=== PATIENT | female | born 1950 | race Caucasian/White ===

== ENCOUNTER 2024-06-14 18:34 | Inpatient (IN) | payer OTHER ==
[~2024-06-14] VITALS: Ht 170.2 cm; Wt 65.4 kg
--- NOTE | 2024-06-14 18:42 | ECG ---
[facility] Test Date: 2024-06-14 Test Time: 18:37:58 Pat Name: SANDIE ARMENDARIZ Department: er Room: 0283 Gender: F Book Coverer: lala : 1950 Requested By: AMERICA COKER Order Number: [id number] Reading MD: Sj Fitch Measurements Intervals [place] Rate: 81 P: 81 KS: 116 QRS: 71 QRSD: 95 T: 69 QT: 377 QTc: 438 Interpretive Statements Sinus rhythm Borderline short [place] interval RSR' in V1 or V2, right VCD or RVH Electronically Signed On 06-17-2024 17:54:50 PST by Sj Fitch Please click the below link to view image of tracing.
--- NOTE | 2024-06-14 19:05 | ED.PDOC ---
History of Present Illness HPI Comments 73 y/o F, with a history of CHF, COPD w/home O2, HLD, HTN, [place], and PNA, is BIBA for c/o shortness of breath, productive cough, and non-radiating, left-chest wall pain, today. Per EMS report, patient is a resident of [facility] and having staff at facility call, due to endorsement of symptoms and being found with SpO2 of "82% on 4LPM O2 concentrator." On scene, patient was stated to have been found with crackles and rales and a SpO2 of 87% on 5LPM. Upon arrival to ED, patient is stated to be on SpO2 of 97% on 4LPM NC. Patient describes pain as heavy and pressure-like in quality. She denies having any hemoptysis, nausea, vomiting, fever, chills, or other associated symptoms or modifiers at this time. Chief Complaint: Shortness of Breath Time Seen by MD: 18:45 Reviewed Notes: Nurses Notes, Medications, Allergies Allergies: Uncoded Allergies: ANTIBIOTICS (Allergy, Unknown, 06/14/24) PENICILLIN (Allergy, Unknown, 06/14/24) SULFA (Allergy, Unknown, 06/14/24) Information Source: Patient, Emergency Med Personnel Mode of Arrival: EMS Severity: Moderate Timing: Hours Duration: Since onset Prehospital treatment: 12 Lead EKG, Configuration Manager, Oxygen Past Medical History PAST MEDICAL HISTORY: CHF, COPD (w/2-4LPM home O2), High Lipids, HTN, [place] Past Medical History (Other): PNA Surgical History: Denies all surgeries CHANNELER INSOLE History: Denies all CHANNELER INSOLE Hx Family History Family History: Unknown Social History Smoker: Non-Smoker Alcohol: Denies ETOH Use Drugs: Denies Drug Use 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 All Other Systems: Reviewed and Negative (Comprehensive systems review obtained and negative except for what is stated in the HPI.) Physical Exam General Appearance: No Apparent Distress, Normal HEENT: Normal ENT Inspection, Pharynx Normal, TMs Normal Neck: Full Range of Motion, Non-Tender, Normal, Normal Inspection Respiratory: Chest Non-Tender, Crackles (bilateral lung brand), Lungs Clear, No Accessory Muscle Use, No Respiratory Distress, Wheezing (bilateral lung brand), Other (productive cough, on 4LPM NC O2) Cardiovascular: No Edema, No JVD, No Murmur, No Gallop, Normal Peripheral Pulses, Regular Rate/Rhythm Breast Exam: Deferred Gastrointestinal: No Organomegaly, Non Tender, No Pulsatile Mass, Normal Bowel Sounds, Soft Genitalia: Deferred Pelvic: Deferred Rectal: Deferred Extremities: No calf tenderness, Normal capillary refill, Normal inspection, Normal range of motion, Non-tender, No pedal edema Musculoskeletal : Apperance: Normal Neurologic: Alert, rejector II-XII nml as Tested, No Motor Deficits, Normal Affect, Normal Mood, No Sensory Deficits Cerebellar Function: Normal Reflexes: Normal Skin: Dry, Normal Color, Warm Lymphatic: No Adenopathy Was a procedure done? Was a procedure done?: No EKG EKG : Pulse Rate (adult): 81 [place]: Normal Cardiac Rhythm: NSR Block: None Hypertrophy: None ST: Normal Differential Dx Considerations may include: COPD exacerbation, URI, viral syndrome, PNA X-Ray, Labs, Meds, VS Vital Signs Date Time Temp Pulse Resp B/P (MAP) Pulse Ox O2 Delivery O2 Flow Rate FiO2 06/14/24 22:10 20 97 Nasal Cannula* 4 36 06/14/24 21:44 97.6 109 17 158/81 (106) 96 97.6 06/14/24 19:05 81 06/14/24 18:40 98.0 84 20 136/74 (94) 97 06/14/24 18:37 81 Lab Test 06/14/24 20:07 06/14/24 19:54 06/14/24 19:00 Range/Units Influenza Type A Antigen Negative Negative Influenza Type B Antigen Negative Negative SARS-CoV-2 Antigen (Rapid) Negative NEGATIVE Troponin I High Sensitivity 27 27 </=34 ng/L White Blood Count 13.7 H 4.4-10.8 10^3/uL Red Blood Count 3.88 L 4.0-5.20 10^6/uL Hemoglobin 11.6 L 12.2-16.2 g/dL Hematocrit 34.7 L 36.0-46.0 % Mean Corpuscular Volume 89.3 80.0-100.0 fL Mean Corpuscular Hemoglobin 29.8 28.0-32.0 pg Mean Corpuscular Hemoglobin Concent 33.4 32.0-36.0 g/dL Red Cell Distribution Width 16.0 H 11.8-14.3 % Platelet Count 269 140-450 10^3/uL Mean Platelet Volume 9.6 6.9-10.8 fL Neutrophils (%) (Auto) 90.2 H 37.0-80.0 % Lymphocytes (%) (Auto) 6.9 L 10.0-50.0 % Monocytes (%) (Auto) 2.1 0.0-12.0 % Eosinophils (%) (Auto) 0.4 0.0-7.0 % Basophils (%) (Auto) 0.4 0.0-2.0 % Neutrophils # (Auto) 12.4 H 1.6-8.6 10 ^3/uL Lymphocytes # (Auto) 0.9 0.4-5.4 10 ^3/uL Monocytes # (Auto) 0.3 0-1.3 10 ^3/uL Eosinophils # (Auto) 0.1 0-0.8 10 ^3/uL Basophils # (Auto) 0.1 0-0.2 10 ^3/uL Nucleated Red Blood Cells 0.1 % Sodium Level 141 136-145 mmol/L Potassium Level 3.6 3.5-5.1 mmol/L Chloride Level 103 98-107 mmol/L Carbon Dioxide Level 30 20-31 mmol/L Anion Gap 8 5-15 Blood Urea Nitrogen 14 9-23 mg/dL Creatinine 0.69 0.550-1.02 mg/dL Glomerular Filtration Rate Calc 91 >90 mL/min BUN/Creatinine Ratio 20.3 H 10.0-20.0 Serum Glucose 139 H 74-106 mg/dL Lactic Acid Level 1.0 0.4-2.0 mmol/L Calcium Level 10.0 8.7-10.4 mg/dL B-Type Natriuretic Peptide 62.35 0-100 pg/mL Current Medications Medications (Trade) Dose Ordered Sig/Alina Route Start Time Stop Time Status Last Admin Albuterol (Ventolin Medneb) 5 mg ONCE ONCE NEB 06/14/24 21:45 06/14/24 22:07 DC 06/14/24 22:09 Ipratropium [place] (Atrovent Medneb) 0.5 mg ONCE ONCE NEB 06/14/24 21:45 06/14/24 22:07 DC 06/14/24 22:[address] [address] Ph: [phone] DIAGNOSTIC IMAGING Diagnostic Imaging Report : [id number] Signed PATIENT: SANDIE ARMENDARIZ ACCT: [id number] UNIT: [id number] : 1950 LOC: ER ROOM / BED: / AGE / SEX: 73 / F ADM STATUS: REG ER SERVICE 184 ORDERING PHYSICIAN: AMERICA COKER MD PROCEDURE(s): CXRP - CHEST PORTABLE REASON: sob ORDER NUMBER(s): [id number], ACCESSION NUMBER(s): [id number] CHEST RADIOGRAPH Indication: sob Technique: Single frontal view of the chest was obtained COMPARISON: None FINDINGS: Lines and Tubes: None Lungs: Clear Pleura: No effusion. No pneumothorax. Cardiomediastinal contours: Unremarkable IMPRESSION: No acute disease. ATED BY: KENDRICK BARBOUR MD DICTATED DATE/TIME: 06/14/242026 SIGNED BY: KENDRICK BARBOUR MD SIGNED DATE/TIME: 06/14/242026 CC: Time of 1ST Reevaluation: 19:15 Reevaluation 1ST: Unchanged Patient Education/Counseling: Diagnosis, Treatment Family Education/Counseling: No Family Present Additional Information The following tests were ordered, and results were reviewed by me: Troponin, rapid influenza a and B and COVID-19 antigen test, blood cultures, lactic acid, CXR, CBC, BMP, BNP Additional Information was gathered from interviewing the following independent historians: EMS I reviewed and agreed with the following test results read by other providers: CXR I discussed treatment and results with medical personnel and: patient Departure 1 Departure Time of Disposition: 22:46 (Patient presented with acute shortness of breath concerning for acute on chronic COPD Exacerbation, Pneumonia, ACS, CHF, Pneumothorax. Less likely PE, Dissection. Data: 1. I ordered and reviewed the result of at least 3 labs including a CBC, BMP, and Troponin. 2. I independently interpreted the following tests: Chest X-ray shows chronic lung disease .Risk:This patient has a high risk of morbidity due to further diagnostic testing or treatment and may suffer from respiratory or cardiac etiology . Workup reveals a likely COPD Exacerbation and patient should be admitted for further workup. and possible expert consultation.) Impression: Primary Impression: Acute and chronic respiratory failure Additional Impressions: COPD exacerbation Shortness of breath Disposition: ADMITTED INPATIENT Admit to: Med Surg Condition: Serious Critical Care Note Critical Care Time?: Yes Critical care comment: Acute shortness of breath Authorized and Performed by: America Coker MD Total critical care time: Approximately 39 minutes Due to a high probability of clinically significant, life threatening det erioration, the patient required my highest level of preparedness to intervene emergently and I personally spent this critical care time directly and personally managing the patient. This critical care time included obtaining a history; examining the patient; pulse oximetry; ordering and review of studies; arranging urgent treatment with development of a management plan; evaluation of patient's response to treatment; frequent reassessment; and, discussions with other providers. This critical care time was performed to assess and manage the high probability of imminent, life-threatening deterioration that could result in multi-organ failure. It was exclusive of separately billable procedures and treating other patients and teaching time. Please see my other sections and the rest of the note for further information on patient assessment and treatment. Stability Stability form required: No Heart Score Heart Score: Heart Score Response (Comments) Value History Moderate Suspicious 1 EKG Repolarization Disturb 1 Age >65 2 Risk Factors 1 or 2 risk factors 1 Troponin 1-2 x's Normal limit 1 Total 6 I personally scribed for AMERICA COKER MD ([email or web address]) on 06/14/24 at 19:05. Electronically submitted by Bruce Cole ([email or web address]). I personally scribed for AMERICA COKER MD ([email or web address]) on 06/14/24 at 19:12. Electronically submitted by Bruce Cole ([email or web address]). I personally scribed for AMERICA COKER MD ([email or web address]) on 06/14/24 at 20:50. Electronically submitted by Bruce Cole ([email or web address]). AMERICA COKER MD Jun 14, 2024 19:05
[2024-06-14 19:24] LABS: Basophils # (auto) 0.1 10 ^3/uL (0-0.2); Basophils % (auto) 0.4 % (0.0-2.0); Eosinophils # (auto) 0.1 10 ^3/uL (0-0.8); Eosinophils % (auto) 0.4 % (0.0-7.0); Hematocrit 34.7 % (36.0-46.0); Hemoglobin 11.6 g/dL (12.2-16.2); Lymphocytes # (auto) 0.9 10 ^3/uL (0.4-5.4); Lymphocytes % (auto) 6.9 % (10.0-50.0); Mean Corpuscular Hemoglobin 29.8 pg (28.0-32.0); Mean Corpuscular Hgb Conc. 33.4 g/dL (32.0-36.0); Mean Corpuscular Volume 89.3 fL (80.0-100.0); Monocytes # (auto) 0.3 10 ^3/uL (0-1.3); Monocytes % (auto) 2.1 % (0.0-12.0); Neutrophils # (auto) 12.4 10 ^3/uL (1.6-8.6); Neutrophils % (auto) 90.2 % (37.0-80.0); Nucleated Red Blood Cells % 0.1 %; Platelet Count (auto) 269 10^3/uL (140-450); Red Blood Cells 3.88 10^6/uL (4.0-5.20); White Blood Cell 13.7 10^3/uL (4.4-10.8)
[2024-06-14 19:31] LABS: Chloride 103 mmol/L (98-107); Potassium 3.6 mmol/L (3.5-5.1); Sodium 141 mmol/L (136-145)
[2024-06-14 19:32] LABS: Anion Gap 8 (5-15); Carbon Dioxide 30 mmol/L (20-31)
[2024-06-14 19:37] LABS: BUN/Creatinine Ratio 20.3 (10.0-20.0); Blood Urea Nitrogen 14 mg/dL (9-23)
[2024-06-14 19:38] LABS: Glucose 139 mg/dL (74-106)
--- NOTE | 2024-06-14 20:29 | DVH ---
CHEST RADIOGRAPH Indication: sob Technique: Single frontal view of the chest was obtained COMPARISON: None FINDINGS: Lines and Tubes: None Lungs: Clear Pleura: No effusion. No pneumothorax. Cardiomediastinal contours: Unremarkable IMPRESSION: No acute disease.
[2024-06-14 21:22] LABS: COVID19 ANTIGEN SOFIA FIA NEGATIVE (NEGATIVE); Rapid Influenza A Negative (Negative); Rapid Influenza B Negative (Negative)
[2024-06-14] MEDS: IPRATROPIUM BROM 0.5 MG/2.5ML INH SOL NEB ONE (22:09)
[2024-06-14] MEDS: ALBUTEROL SULF 2.5 MG/0.5ML(0.5%) NEB SOLN NEB ONE (22:09)
[2024-06-14] MEDS: IPRATROPIUM BROM 0.5 MG/2.5ML INH SOL ONE (22:09)
[2024-06-14] MEDS: ALBUTEROL SULF 2.5 MG/0.5ML(0.5%) NEB SOLN ONE (22:10)
[2024-06-14] MEDS: methylPREDNISolone SOD SUCC 125 MG/2 ML VL IV ONE (23:45)
[2024-06-14] MEDS ORDERED: NITROGLYCERIN 0.4 MG SL TAB SL PRN (23:45)
[2024-06-14] MEDS ORDERED: MORPHINE SULFATE INJ 2 MG/ml SYRG IV PRN ×2 (23:45)
[2024-06-14] MEDS: AZITHROMYCIN 250 MG TAB PO ONE (23:45)
[2024-06-15] VITALS (17 sets, daily range): BP systolic 158; BP diastolic 51; PULSE 67–109; RESP 14–20; O2SAT 93–100
--- NOTE | 2024-06-15 00:28 | DVHHPRES ---
History of Present Illness Resident Creating Document: MATEO DE LA [place]GA RESIDENT History of Present Illness Juanito Heller the 73-year-old female, poor historian with a PMH of CHF, COPD with home oxygen, HLD, HTN, [place] presented to the ED with the chief complaints of worsening of shortness of breaths and left-sided chest pain. Patient reported she has been on home oxygen 2-4 L as needed but for past 3 weeks for shortness of breath has been worsening and today she developed left-sided chest pain which is pressure-like, radiating to left arm, 7/10 intensity no aggravating or relieving factors and no association symptoms. Patient reported she has currently at [facility] and having staff at facility call, due to endorsement of symptoms and being found with SpO2 of 82% on 4LPM. On my assessment patient denies fever, nausea, vomiting, diarrhea, constipation, diaphoresis, palpitations and other acute associated symptoms. PMH: CHF, COPD on 4 L home O2, HLD, HTN, [place] PSH: Denies Family history: Noncontributory Social history: Lives at SNF. Denies smoking, alcohol and other drug abuse Allergies: Antibiotics, penicillins, sulfa Home medications: Unable to obtain Review of Systems Constitutional: Yes: Weakness Eyes: No: Pain, Vision change, Conjunctivae inflammation, Eyelid inflammation, Other, Redness ENT: No: Ear pain, Ear discharge, Nose pain, Nose discharge, Nose congestion, Mouth pain, Mouth swelling, Throat pain, Throat swelling, Other Respiratory: Cough, Shortness of breath, SOB with excertion Cardiovascular: Chest Pain, Edema Gastrointestinal: No: Nausea, Vomiting, Abdominal Pain, Diarrhea, Constipation, Melena, Hematochezia, Other Genitourinary: No Dysuria, No Frequency, No Incontinence, No Hematuria, No Retention, No Other Musculoskeletal: No: other, neck pain, shoulder pain, arm pain, back pain, hand pain, leg pain, foot pain Skin: No: Rash, Lesions, Jaundice, Bruising, Other Neurological: No: Weakness, Numbness, Incoordination, Change in speech, Confusion, Seizures, Other Allergies: Coded Allergies: Penicillins (Verified Allergy, Unknown, 06/15/24) Sulfa Antibiotics (Verified Allergy, Unknown, 06/15/24) Uncoded Allergies: ANTIBIOTICS (Allergy, Unknown, 06/14/24) PENICILLIN (Allergy, Unknown, 06/14/24) SULFA (Allergy, Unknown, 06/14/24) Medications Current Medications Medications Dose Ordered Sig/Alina Route Start Time Stop Time Status Last Admin Dose Admin Sodium Chloride 10 ml Q8HR IV 06/15/24 06:00 Enoxaparin Sodium 40 mg DAILY SC 06/15/24 10:00 Acetaminophen 650 mg Q6HP PRN PO 06/14/24 23:45 Morphine Sulfate 2 mg Q4HPRN PRN IV 06/14/24 23:45 Nitroglycerin 0.4 mg Q5MINP PRN SL 06/14/24 23:45 Morphine Sulfate 2 mg Q30M PRN IV 06/14/24 23:45 Levalbuterol HCl 0.625 mg Q6HR NEB 06/15/24 00:00 Ipratropium [place] 0.5 mg Q6HPRN NEB 06/15/24 00:00 Methylprednisolone Sodium Succinate 40 mg DAILY IV 06/15/24 10:00 Exam Vital Signs Vital Signs Date Time Temp Pulse Resp B/P (MAP) Pulse Ox O2 Delivery O2 Flow Rate FiO2 06/15/24 00:14 97.9 94 18 153/83 (106) 97 97.9 06/15/24 00:07 4.0 36 06/14/24 22:10 Nasal Cannula* Exam General Appearance: Alert, Oriented X3, Cooperative, moderate distress HEENT: Atraumatic, Mucous membranes moist/pink Respiratory: Diminished breath sounds bilaterally Cardiovascular: Regular rate, Normal S1, Normal S2 Abdominal: Active bowel sounds, Soft, no distention, no tenderness Extremities: 1+ BLE edema, Normal pulses, No tenderness Skin: No Significant rash, except age related changes Neuro: Normal speech, sensorimotor deficits none Psych/Mental Status: Mental status NL, Mood NL Nurse was there as sharperone during examination Labs/Xrays Labs Test 06/14/24 20:07 06/14/24 19:54 06/14/24 19:00 Range/Units Influenza Type A Antigen Negative Negative Influenza Type B Antigen Negative Negative SARS-CoV-2 Antigen (Rapid) Negative NEGATIVE Troponin I High Sensitivity 27 </=34 ng/L White Blood Count 13.7 H 4.4-10.8 10^3/uL Red Blood Count 3.88 L 4.0-5.20 10^6/uL Hemoglobin 11.6 L 12.2-16.2 g/dL Hematocrit 34.7 L 36.0-46.0 % Mean Corpuscular Volume 89.3 80.0-100.0 fL Mean Corpuscular Hemoglobin 29.8 28.0-32.0 pg Mean Corpuscular Hemoglobin Concent 33.4 32.0-36.0 g/dL Red Cell Distribution Width 16.0 H 11.8-14.3 % Platelet Count 269 140-450 10^3/uL Mean Platelet Volume 9.6 6.9-10.8 fL Neutrophils (%) (Auto) 90.2 H 37.0-80.0 % Lymphocytes (%) (Auto) 6.9 L 10.0-50.0 % Monocytes (%) (Auto) 2.1 0.0-12.0 % Eosinophils (%) (Auto) 0.4 0.0-7.0 % Basophils (%) (Auto) 0.4 0.0-2.0 % Neutrophils # (Auto) 12.4 H 1.6-8.6 10 ^3/uL Lymphocytes # (Auto) 0.9 0.4-5.4 10 ^3/uL Monocytes # (Auto) 0.3 0-1.3 10 ^3/uL Eosinophils # (Auto) 0.1 0-0.8 10 ^3/uL Basophils # (Auto) 0.1 0-0.2 10 ^3/uL Nucleated Red Blood Cells 0.1 % Sodium Level 141 136-145 mmol/L Potassium Level 3.6 3.5-5.1 mmol/L Chloride Level 103 98-107 mmol/L Carbon Dioxide Level 30 20-31 mmol/L Anion Gap 8 5-15 Blood Urea Nitrogen 14 9-23 mg/dL Creatinine 0.69 0.550-1.02 mg/dL Glomerular Filtration Rate Calc 91 >90 mL/min BUN/Creatinine Ratio 20.3 H 10.0-20.0 Serum Glucose 139 H 74-106 mg/dL Lactic Acid Level 1.0 0.4-2.0 mmol/L Calcium Level 10.0 8.7-10.4 mg/dL B-Type Natriuretic Peptide 62.35 0-100 pg/mL Assessment/Plan Assessment/Plan # acute on chronic hypoxic respiratory failure due to below # ? COPD exacerbation # rule out sepsis -ad[facility] -currently on 5L NC O2 -receiving azithromycin along with breathing treatments -methylprednisolone 40 mg daily -closely monitor for respiratory distress -ordered larios cultures # rule out ACS -troponins negative -ordered chest pain protocol # CHF likely not in exacerbation -echocardiogram -BNP not elevated # uncontrolled HTN -continuously monitor -hydralazine 10 mg for now Protonix Lovenox Cardiac diet Goals of care discussed with the patient for more than 27 minutes: Full code status Case discussed with Dr. Costello, patient and RN Plan discussed with: Patient My Orders Orders - MATEO DE [place] RESIDENT Procedure Category Date Status Time Admit ADMIT 06/14/24 Transmitted 23:36 Allergies AHSAN 06/14/24 In Process 23:36 Code Status CODE 06/14/24 Transmitted 23:36 Sodium Chloride Lock PHA 06/15/24 In Process (Saline Lock Ns) 06:00 Oxygen Per Hour RT 06/14/24 Transmitted 23:36 Enoxaparin Sodium PHA 06/15/24 In Process (Lovenox) 10:00 Complete Blood Count LAB 06/15/24 Logged 04:00 Cardiac DIET 06/15/24 Transmitted Diet-2gna,Lofat,Lochol Breakfast Echo 2d Mode Cardiac US 06/14/24 Logged DOP 23:36 Condition: Stable AHSAN 06/14/24 In Process 23:36 Acetaminophen Tablet PHA 06/14/24 In Process (Tylenol Tablet) 23:45 Morphine Sulfate PHA 06/14/24 In Process Injection 23:45 Nitroglycerin PHA 06/14/24 In Process Sublingual (Ntrostat 23:45 Morphine Sulfate PHA 06/14/24 In Process Injection 23:45 Oxygen By Nasal RT 06/14/24 Transmitted Cannula 23:36 Stat Ekg For Chest AHSAN 06/14/24 In Process Pain 23:36 Notify Of Changes AHSAN 06/14/24 In Process From Base 23:36 Hepatic Panel LAB 06/14/24 Logged 23:36 Ammonia LAB 06/14/24 Logged 23:36 D-Dimer LAB 06/14/24 Logged 23:36 Hemoglobin A1c LAB 06/14/24 Logged 23:36 Lactic Acid W/ Reflex LAB 06/14/24 Logged Order 23:36 Magnesium LAB 06/14/24 Logged 23:36 Thyroid Stimulating LAB 06/14/24 Logged Hormone 23:36 Urinalysis LAB 06/14/24 Logged 23:36 PTPTT LAB 06/14/24 Logged 23:36 Levalbuterol Hcl PHA 06/15/24 In Process (Xopenex Medneb) 00:00 Ipratropium Medneb PHA 06/15/24 In Process (Atrovent Medneb) 00:00 Methylprednisolone PHA 06/15/24 In Process Sod Succ (Solu Medrol 10:00 Comprehensive LAB 06/15/24 Logged Metabolic Panel 04:00 Urine Bacterial OTILIA 06/15/24 Logged Culture 00:22 Respiratory Culture OTILIA 06/15/24 Logged W/ Gs 00:22 Blood Culture OTILIA 06/15/24 Logged 00:22 Azithromycin 500mg/ PHA 06/15/24 Logged 250ml (Zithromax 50 10:00 Hydralazine Injection PHA 06/15/24 Logged (Apresoline Inject 00:30 Hydralazine Injection PHA 06/15/24 Logged (Apresoline Inject 00:30 Pantoprazole PHA 06/15/24 Transmitted (Protonix) 10:00 Date of Service: Jun 14, 2024 Billing Provider: JENNI COSTELLO MD Common Visit Codes: 69964-[id number] INP/OBS CARE (HIGH) Secondary Visit Codes: [id number]-[id number] CARE PLAN 30 MINUTES MATEO DE [place] RESIDENT Jun 15, 2024 00:28 JENNI COSTELLO MD Jun 15, 2024 17:53
[2024-06-15] MEDS ORDERED: hydrALAZINE HCL 20 MG/ML VL IV PRN (00:30)
[2024-06-15] MEDS: hydrALAZINE HCL 20 MG/ML VL IV ONE (00:30)
[2024-06-15] MEDS: LEVALBUTEROL HCL 1.25 MG/3 ML NEB NEB SCH ×2 (00:56→17:43)
[2024-06-15] MEDS: IPRATROPIUM BROM 0.5 MG/2.5ML INH SOL NEB SCH (00:56)
[2024-06-15 01:48] LABS: Lactic Acid w/Reflex 2.9 mmol/L (0.4-2.0)
[2024-06-15 04:15] LABS: Urine Bacteria MOD /hpf (None Seen); Urine Blood Negative /uL (Negative); Urine Clarity Clear (Clear); Urine Color Light-Yellow (Yellow); Urine Hyaline Cast MOD /lpf (0 - 2); Urine Protein, UAD TRACE (Negative); Urine Specific Gravity 1.015 (1.001-1.035); Urine Squamous Epithelial Cell FEW /hpf (<5); Urine Urobilinogen Normal (Negative); Urine WBC 2 /HPF (0-5); Urine pH 6.5 (5.0-9.0)
[2024-06-15] MEDS: SODIUM CHLOR 0.9% PF (SALINE LOCK) 10ML VIAL/SYR IV SCH (06:04)
[2024-06-15 06:38] LABS: Basophils # (auto) 0 10 ^3/uL (0-0.2); Basophils % (auto) 0.4 % (0.0-2.0); Eosinophils # (auto) 0 10 ^3/uL (0-0.8); Hematocrit 32.7 % (36.0-46.0); Hemoglobin 10.9 g/dL (12.2-16.2); Lymphocytes # (auto) 1.1 10 ^3/uL (0.4-5.4); Lymphocytes % (auto) 8.5 % (10.0-50.0); Mean Corpuscular Hemoglobin 29.8 pg (28.0-32.0); Mean Corpuscular Hgb Conc. 33.2 g/dL (32.0-36.0); Mean Corpuscular Volume 89.5 fL (80.0-100.0); Monocytes # (auto) 0.2 10 ^3/uL (0-1.3); Monocytes % (auto) 1.4 % (0.0-12.0); Neutrophils # (auto) 11.3 10 ^3/uL (1.6-8.6); Neutrophils % (auto) 89.7 % (37.0-80.0); Platelet Count (auto) 235 10^3/uL (140-450); Red Blood Cells 3.65 10^6/uL (4.0-5.20); Red Cell Distribution Width 16.2 % (11.8-14.3); White Blood Cell 12.6 10^3/uL (4.4-10.8)
[2024-06-15 06:51] LABS: INR 1.05 (0.9-1.15); Partial Thromboplastin Time 25.3 SEC (24.5-34.5); Prothrombin Time 11.1 sec (9.3-11.8)
[2024-06-15 06:57] LABS: Albumin 4.6 g/dL (3.2-4.8); Alkaline Phosphatase 68 U/L (46-116); Anion Gap 9 (5-15); BUN/Creatinine Ratio 19.7 (10.0-20.0); Bilirubin, Direct 0.2 mg/dL (<0.3); Bilirubin, Total 0.5 mg/dL (0.2-1.0); Blood Urea Nitrogen 13 mg/dL (9-23); Calcium 9.9 mg/dL (8.7-10.4); Carbon Dioxide 27 mmol/L (20-31); Chloride 104 mmol/L (98-107); Magnesium 2.2 mg/dL (1.6-2.6); Sodium 140 mmol/L (136-145); Total Protein 6.3 g/dL (5.7-8.2)
[2024-06-15 06:59] LABS: Alanine Aminotransferase 71 U/L (7-40); Aspartate Aminotransferase 83 U/L (13-40); Glucose 114 mg/dL (74-106); Potassium 3.4 mmol/L (3.5-5.1)
[2024-06-15] MEDS: SODIUM CHLORIDE 0.9% 500 ML IV ONE (07:43)
[2024-06-15 08:25] LABS: Benzodiazephine Screen, Urine Neg (NEGATIVE); Opiate Scree,Urine Neg (NEGATIVE)
[2024-06-15 08:26] LABS: Amphetamine Screen, Urine Neg (NEGATIVE); Barbiturate Scree,Urine Neg (NEGATIVE); Cannabinoid Screen, Urine Neg (NEGATIVE); Cocaine Screen, Urine Neg (NEGATIVE); Phencyclidine Screen, Urine Neg (NEGATIVE)
[2024-06-15] MEDS: SODIUM CHLORIDE 0.9% 1,000 ML IV SCH (08:44)
[2024-06-15] MEDS ORDERED: cefTRIAXone 1GM/50ML D5W 50 ML IV SCH (09:00)
--- NOTE | 2024-06-15 09:10 | DVHPNRES ---
Progress Note Date Seen: Jun 15, 2024 Resident Creating Document: WILBER CANELA RESIDENT Medical Necessity Reason Pt with a Central, PICC or Fol: No Subjective Review of Systems Patient is a 73-year-old female with past medical history of COPD, CHF, MS, h ypertension who came in due to shortness of breath and decreased SpO2. According to the patient, she was discharged from [facility] on 06/10/2024 after being treated for pneumonia and was sent to [facility] for physical therapy. Per patient, she has been having dyspnea and shortness of breath since then, patient is on home O2 2-4 L, at [facility] she was noted to have SpO2 of 82% on 4 L with SpO2 averaging at 86% on 5 L which is what prompted this visit to the hospital. Patient notes a left-sided chest pain that has been ongoing for the last few months, anterior chest tenderness to palpation is also noted. Patient states she is a little forgetful at baseline. Chest x-ray was unremarkable in the ER, chest x-ray performed at [facility] on 06/01/2024 showed peripheral left lower lobe airspace opacity, concerning for pneumonia. Past surgical history: Hysterectomy Home medications: Albuterol, atorvastatin, budesonide, carvedilol, furosemide, [place] 5, lansoprazole, latanoprost, losartan, pregabalin, sertraline, trazodone, Trelegy Past Hospitalization: 06/01/2024 for pneumonia and sepsis due to pneumonia Social & Personal history: Patient came from [facility] this time, prior to that was living at home with her . Quit smoking 8 years ago prior to that was smoking 1.5 pack per day for 50 years. Drinks 1-2 alcoholic drinks daily, remote history of heavy alcohol use and rehab attendance. Denies using any drugs. Allergies: Patient states allergy to sulfa drugs which causes nightmares. Patient states she is not allergic to penicillin and her is allergic to penicillin. Patient seen and examined at bedside. Patient is alert and oriented to time, place person and responding to all questions. General: Fatigue, chills Eyes: No Pain, No Vision change, No Conjunctivae inflammation, No Eyelid inflammation, No Other, No Redness ENT: No Ear pain, No Ear discharge, No Nose pain, No Nose discharge, No Nose congestion, No Mouth pain, No Mouth swelling, No Throat pain, No Throat swelling, No Other Cardiovascular: No Chest Pain, Palpitations, No Orthopnea, No Paroxysmal No Dyspnea, No Edema, No Lt Headedness, No Other Respiratory: Cough, No Dry Shortness of breath, No SOB with exertion, No Wheezing, No Hemoptysis, No Pleuritic Pain, No Sputum, No Other Gastrointestinal: No Nausea, No Vomiting, No Abdominal Pain, No Diarrhea, No Constipation, No Melena, No Hematochezia, No Other Genitourinary: No Dysuria, Frequency, No Incontinence, No Hematuria, No Retention, No Other Musculoskeletal: No other, No neck pain, No shoulder pain, No arm pain, No back pain, No hand pain, No leg pain, No foot pain Skin: No Rash, No Lesions, No Jaundice, No Bruising, No Other Objective vital signs Vital Sign Date Time Temp Pulse Resp B/P (MAP) Pulse Ox O2 Delivery O2 Flow Rate FiO2 06/15/24 07:45 94 14 94 Nasal Cannula* 3 32 06/15/24 07:45 97.8 128/63 (84) 97.8 medications Current Medications Medications Dose Ordered Sig/Alina Route Start Time Stop Time Status Last Admin Dose Admin Sodium Chloride 10 ml Q8HR IV 06/15/24 06:00 06/15/24 06:04 10 ML Enoxaparin Sodium 40 mg DAILY SC 06/15/24 10:00 Acetaminophen 650 mg Q6HP PRN PO 06/14/24 23:45 Levalbuterol HCl 0.625 mg Q6HR NEB 06/15/24 00:00 06/15/24 07:13 0.625 MG Ipratropium [place] 0.5 mg Q6HPRN NEB 06/15/24 00:00 06/15/24 07:13 0.5 MG Methylprednisolone Sodium Succinate 40 mg DAILY IV 06/15/24 10:00 Azithromycin 250 ml @ 125 mls/hr DAILY IV 06/15/24 10:00 UNV Pantoprazole Sodium 40 mg DAILY IV 06/15/24 10:00 Azithromycin 250 ml @ 125 mls/hr Q24H IV 06/15/24 23:00 Sodium Chloride 1,000 ml @ 75 mls/hr [id number] IV 06/15/24 06:45 06/15/24 08:44 75 MLS/HR Ceftriaxone Sodium 50 ml @ 100 mls/hr DAILY@09 IV 06/15/24 09:00 UNV Examination General Appearance: Cooperative. Well developed. Well nourished. NAD Head Exam: Normal inspection. White patches on tongue noted Neck Exam: Normal inspection. Non-tender. Normal alignment Pulmonary/Respiratory: Chest tender. Decreased bilateral breath sounds, no crackles, no wheezing. Cardiovascular/Chest: Regular rate and rhythm. No murmurs. No JVD. Peripheral Pulses: 2+ Radial (R). 2+ Radial (L). 2+ Pedal (R). 2+ Pedal (L) Abdominal Exam: Normal bowel sounds. Soft. normal abdomen, no visible veins, Nontender. No hepatospenomegaly. No masses Ankle Exam: Negative ankle edema Lower extremities: Negative lower extremity edema Neuro/Mental Status: A&O x4. Coherent. Thoughts/Psych: Normal thought pattern. Appropriate mood and affect. Good judgement and insight Skin Exam: Normal inspection. Normal color. Warm. Dry laboratory and microbiology Laboratory Tests 06/15/24 05:41 Test 06/15/24 05:41 Range/Units Serum Glucose 114 H 74-106 mg/dL Labs and/or images reviewed: Labs reviewed by me, Image(s) reviewed by me Problem List/Assessment/Plan Problem List/Assessment/Plan Community-acquired pneumonia: Gram-positive versus Gram-negative Sepsis due to pneumonia Probable acute complicated UTI COPD exacerbation - CXR today: No acute disease - CXR from [facility] on 06/01/2024 shows peripheral left lower lobe airspace opacity, concerning for pneumonia - IV azithromycin, IV cefepime - IV NS 1500 mL bolus, IV NS at 75 cc/hour - ipratropium and levalbuterol med nebs - IV methylprednisolone 62.5 mg once followed by IV methylprednisolone 40 mg daily - Mucomyst Ruled out ACS - serial troponins 27, 27 - EKG does not show any ST elevations or T-wave changes, however, borderline short [place] interval noted Congestive heart failure, currently stable Coronary artery disease Hypertension - resumed home medication atorvastatin 80 mg - resume home medication losartan 25 mg - home medication carvedilol 3.125 as blood pressure on the softer side, we will continue to monitor Oral thrush - nystatin swish and swallow PUD prophylaxis: protonix 40mg DVT prophylaxis: Levonox 40mg Goals of care: Full code, discussed for >16 minutes on 06/15/2024 Plan discussed with patient Plan discussed with Dr. Ba Plan discussed with: Patient, Other (RN) Date of Service: Jun 15, 2024 Billing Provider: MILI BA MD Common Visit Codes: [id number] INP/OBS CARE(HIGH) WILBER CANELA RESIDENT Jun 15, 2024 09:10 MILI BA MD Jun 20, 2024 15:44
[2024-06-15] MEDS: ENOXAPARIN SOD 40 MG/0.4 ML SYRINGE SC SCH (09:53)
[2024-06-15] MEDS: PANTOPRAZOLE 40 MG/10 ML VIAL INJ IV SCH (09:54)
[2024-06-15] MEDS: methylPREDNISolone SOD SUCC 40 MG/ML VL IV SCH (09:54)
[2024-06-15] MEDS ORDERED: AZITHROMYCIN 500MG/ 250ML 250 ML IV SCH (10:00)
[2024-06-15] MEDS ORDERED: CEFEPIME 1GM/ 50ML 50 ML IV ONE (10:30)
[2024-06-15] MEDS: SODIUM CHLORIDE 0.9% 1,000 ML IV ONE (10:43)
[2024-06-15] MEDS: CEFEPIME 1GM/ 50ML 50 ML IV ONE (10:46)
[2024-06-15] MEDS: ACETYLCYSTEINE 20%(200MG/ML) SOL 4ML NEB ONE (11:38)
[2024-06-15] MEDS: NYSTATIN (MOUTH-THROAT) 500,000 UNITS/5 ML SUSP MT SCH (11:54)
--- NOTE | 2024-06-15 13:06 | DVHSR ---
APPROVED REPORT EXAM: Two-dimensional and M-mode echocardiogram with Doppler and color Doppler. Blood Pressure: 146/60 mmHg INDICATION Chest Pain SOB RISK FACTORS Height: 5' 5", Weight: 138 DIMENSIONS LVDd4.2 (3.8-5.7cm)LA (2D)3.7 (1.9-4.0cm)Aortic Root3.1 (2.0-3.7cm) LVDs3.2 (2.5-4.0cm)LA (MM) (1.9-4.0cm)Aortic Cusp Exc1.4 (1.5-2.0cm) EF (%) 50.0 (55-70%)Rt. Atrium3.7 (1.9-4.0cm)Asc. Aorta cm IVSd0.8 (0.7-1.1cm)RV (D) (1.8-2.4cm) PWd0.8 (0.7-1.1cm) Mitral Valve MitralMitral Stenosis E wave1.30m/sMV Mean GR.mmHg A wave1.10m/sMV Peak GR.mmHg E/A ratio1.22D MVAcm2 Aortic Valve Aortic ValveAortic Stenosis V11.00m/Luis A Mean GR.4mmHg V21.60m/Luis A Peak GR.10mmHg LVOT Diameter2.2 (1.8-2.4cm)Doppler AVA2.37cm2 Conclusion lvef 65 % byvisual estimate normal rv function left atrium enlarged no severe valve abnormalities noted
[2024-06-15] MEDS: ACETYLCYSTEINE 20%(200MG/ML) SOL 4ML NEB SCH (14:00)
[2024-06-15] MEDS: HYDROcodone-ACET 5/325MG TAB PO ONE (14:15)
[2024-06-15] MEDS: IPRATROPIUM BROM 0.5 MG/2.5ML INH SOL NEB PRN (17:44)
[2024-06-15] MEDS: ATORVASTATIN 20 MG TAB PO SCH (23:29)
[2024-06-15] MEDS: AZITHROMYCIN 500MG/ 250ML 250 ML IV SCH (23:30)
[2024-06-16] VITALS (16 sets, daily range): BP systolic 118–135; BP diastolic 52–62; PULSE 72–95; RESP 16–20; TEMP 97.4–98.6; O2SAT 93–100
[2024-06-16] MEDS ORDERED: FLUT1AER17 INH (00:43)
[2024-06-16] MEDS ORDERED: TRAZ1TAB12 PO (00:43)
[2024-06-16] MEDS ORDERED: ALBU108A5 INH (00:43)
[2024-06-16] MEDS ORDERED: ASPI-325 PO (00:43)
[2024-06-16] MEDS ORDERED: PREG75CA90 PO (00:43)
[2024-06-16] MEDS ORDERED: CARV3.1240 PO (00:43)
[2024-06-16] MEDS ORDERED: IPRA0.00 NEB (00:43)
[2024-06-16] MEDS ORDERED: LATA0.008 EACHEYE (00:43)
[2024-06-16] MEDS ORDERED: VITA400T4 PO (00:43)
[2024-06-16] MEDS ORDERED: ATOR-47 PO (00:43)
[2024-06-16] MEDS ORDERED: LANS30CA58 PO (00:43)
[2024-06-16] MEDS ORDERED: LACT1CAP14 PO (00:43)
[2024-06-16] MEDS ORDERED: LOS25T PO (00:43)
[2024-06-16] MEDS ORDERED: HYDR1TAB97 PO (00:43)
[2024-06-16] MEDS ORDERED: ACET325T82 PO (00:43)
[2024-06-16] MEDS ORDERED: CRAN450T PO (00:43)
[2024-06-16] MEDS ORDERED: SERT-160 PO (00:43)
[2024-06-16] MEDS ORDERED: ASCO500C49 PO (00:43)
[2024-06-16] MEDS ORDERED: FURO20TA4 PO (00:43)
[2024-06-16] MEDS ORDERED: PRED10TA (00:43)
[2024-06-16] MEDS ORDERED: ZINC220T6 PO (00:43)
[2024-06-16] MEDS: HYDROcodone-ACET 5/325MG TAB PO ONE (02:13)
[2024-06-16] MEDS: TEMAZEPAM 15 MG CAP PO ONE (02:13)
[2024-06-16] MEDS: CEFEPIME 1GM/ 50ML 50 ML IV SCH (02:14)
[2024-06-16 08:56] LABS: Basophils # (auto) 0.1 10 ^3/uL (0-0.2); Basophils % (auto) 0.4 % (0.0-2.0); Eosinophils # (auto) 0.1 10 ^3/uL (0-0.8); Eosinophils % (auto) 0.9 % (0.0-7.0); Hematocrit 31.3 % (36.0-46.0); Hemoglobin 10.1 g/dL (12.2-16.2); Lymphocytes # (auto) 3.1 10 ^3/uL (0.4-5.4); Lymphocytes % (auto) 21.9 % (10.0-50.0); Mean Corpuscular Hgb Conc. 32.1 g/dL (32.0-36.0); Mean Corpuscular Volume 90.3 fL (80.0-100.0); Monocytes # (auto) 1.4 10 ^3/uL (0-1.3); Monocytes % (auto) 9.4 % (0.0-12.0); Neutrophils # (auto) 9.6 10 ^3/uL (1.6-8.6); Neutrophils % (auto) 67.4 % (37.0-80.0); Nucleated Red Blood Cells % 0.1 %; Platelet Count (auto) 223 10^3/uL (140-450); Red Blood Cells 3.46 10^6/uL (4.0-5.20); Red Cell Distribution Width 16.3 % (11.8-14.3); White Blood Cell 14.3 10^3/uL (4.4-10.8)
[2024-06-16] MEDS: LOSARTAN POTASSIUM 25 MG TAB PO SCH (09:10)
[2024-06-16 09:21] LABS: Anion Gap 7 (5-15); Carbon Dioxide 26 mmol/L (20-31); Sodium 144 mmol/L (136-145)
[2024-06-16 09:22] LABS: Calcium 9.4 mg/dL (8.7-10.4); Chloride 111 mmol/L (98-107); Potassium 3.3 mmol/L (3.5-5.1)
[2024-06-16 09:27] LABS: BUN/Creatinine Ratio 12.5 (10.0-20.0); Glucose 102 mg/dL (74-106)
[2024-06-16 09:28] LABS: Blood Urea Nitrogen 8 mg/dL (9-23)
[2024-06-16] MEDS: HYDROcodone-ACET 5/325MG TAB PO PRN (13:09)
--- NOTE | 2024-06-16 17:26 | DVHPNRES ---
Progress Note Date Seen: Jun 16, 2024 Resident Creating Document: WILBER CANELA RESIDENT Medical Necessity Reason Pt with a Central, PICC or Fol: No Subjective Review of Systems Patient is a 73-year-old female with past medical history of COPD, CHF, [place], h ypertension who came in due to shortness of breath and decreased SpO2. According to the patient, she was discharged from [facility] on 06/10/2024 after being treated for pneumonia and was sent to [facility] for physical therapy. Per patient, she has been having dyspnea and shortness of breath since then, patient is on home O2 2-4 L, at [facility] she was noted to have SpO2 of 82% on 4 L with SpO2 averaging at 86% on 5 L which is what prompted this visit to the hospital. Patient notes a left-sided chest pain that has been ongoing for the last few months, anterior chest tenderness to palpation is also noted. Patient states she is a little forgetful at baseline. Chest x-ray was unremarkable in the ER, chest x-ray performed at [facility] on 06/01/2024 showed peripheral left lower lobe airspace opacity, concerning for pneumonia. Past surgical history: Hysterectomy Home medications: Albuterol, atorvastatin, budesonide, carvedilol, furosemide, [place] 5, lansoprazole, latanoprost, losartan, pregabalin, sertraline, trazodone, Trelegy Past Hospitalization: 06/01/2024 for pneumonia and sepsis due to pneumonia Social & Personal history: Patient came from [facility] this time, prior to that was living at home with her . Quit smoking 8 years ago prior to that was smoking 1.5 pack per day for 50 years. Drinks 1-2 alcoholic drinks daily, remote history of heavy alcohol use and rehab attendance. Denies using any drugs. Allergies: Patient states allergy to sulfa drugs which causes nightmares. Patient states she is not allergic to penicillin and her is allergic to penicillin. Patient seen and examined at bedside. Patient is alert and oriented to time, place person and responding to all questions. Patient notes improvement in breathing and is expectorating some sputum. Improved breath sounds from previous exam done on 06/15/2024. Objective vital signs Vital Sign Date Time Temp Pulse Resp B/P (MAP) Pulse Ox O2 Delivery O2 Flow Rate FiO2 06/16/24 16:42 98.3 85 16 134/59 (84) 95 98.3 06/16/24 09:39 Nasal Cannula* 3 32 Total Intake and Output 06/15/24 06/15/24 06/16/24 15:00 23:00 07:00 Intake Total 1550 ml 375 ml Balance 1550 ml 375 ml medications Current Medications Medications Dose Ordered Sig/Alina Route Start Time Stop Time Status Last Admin Dose Admin Sodium Chloride 10 ml Q8HR IV 06/15/24 06:00 06/16/24 14:10 10 ML Enoxaparin Sodium 40 mg DAILY SC 06/15/24 10:00 Acetaminophen 650 mg Q6HP PRN PO 06/14/24 23:45 Methylprednisolone Sodium Succinate 40 mg DAILY IV 06/15/24 10:00 06/16/24 09:09 40 MG Azithromycin 250 ml @ 125 mls/hr DAILY IV 06/15/24 10:00 UNV Pantoprazole Sodium 40 mg DAILY IV 06/15/24 10:00 06/16/24 09:09 40 MG Azithromycin 250 ml @ 125 mls/hr Q24H IV 06/15/24 23:00 06/15/24 23:30 125 MLS/HR Sodium Chloride 1,000 ml @ 75 mls/hr [id number] IV 06/15/24 06:45 06/15/24 22:30 75 MLS/HR Cefepime HCl 50 ml @ 12.5 mls/hr Q12H IV 06/15/24 22:00 06/16/24 09:09 12.5 MLS/HR Nystatin 5 ml QID MT 06/15/24 12:00 06/16/24 14:18 5 ML Acetylcysteine 200 mg Q8HR NEB 06/15/24 14:00 06/16/24 12:02 200 MG Levalbuterol HCl 0.625 mg Q6HR NEB 06/15/24 14:00 06/16/24 12:02 0.625 MG Atorvastatin Calcium 80 mg HS PO 06/15/24 22:00 06/15/24 23:29 80 MG Losartan Potassium 25 mg DAILY PO 06/16/24 10:00 06/16/24 09:10 25 MG Ipratropium [place] 0.5 mg Q4HPRN PRN NEB 06/15/24 14:45 06/15/24 17:44 0.5 MG Acetaminophen/ Hydrocodone Bitart 1 tab Q6HPRN PRN PO 06/16/24 13:00 06/16/24 13:09 1 TAB Examination General Appearance: Cooperative. Well developed. Well nourished. NAD Head Exam: Normal inspection. White patches on tongue noted Neck Exam: Normal inspection. Non-tender. Normal alignment Pulmonary/Respiratory: Chest tender. Decreased bilateral breath sounds, but improved from previous exam. no crackles, no wheezing. Cardiovascular/Chest: Regular rate and rhythm. No murmurs. No JVD. Peripheral Pulses: 2+ Radial (R). 2+ Radial (L). 2+ Pedal (R). 2+ Pedal (L) Abdominal Exam: Normal bowel sounds. Soft. normal abdomen, no visible veins, Nontender. No hepatospenomegaly. No masses Ankle Exam: Negative ankle edema Lower extremities: Negative lower extremity edema Neuro/Mental Status: A&O x4. Coherent. Thoughts/Psych: Normal thought pattern. Appropriate mood and affect. Good judgement and insight Skin Exam: Normal inspection. Normal color. Warm. Dry laboratory and microbiology Laboratory Tests 06/16/24 08:29 Test 06/16/24 08:29 Range/Units Serum Glucose 102 74-106 mg/dL Microbiology Date/Time Source Procedure Growth Status 06/15/24 11:00 Nose MRSA Screen - Final Complete 06/15/24 07:45 Sputum Gram Stain - Final Resulted 06/15/24 07:45 Sputum Respiratory Culture - Preliminary Resulted 06/15/24 02:37 Voided Urine Urine Culture - Preliminary Resulted 06/15/24 01:00 Blood Blood Culture - Preliminary NO GROWTH AFTER 24 HOURS OF INCUBATION. Resulted Labs and/or images reviewed: Labs reviewed by me, Image(s) reviewed by me Problem List/Assessment/Plan Problem List/Assessment/Plan Community-acquired pneumonia: Gram-positive versus Gram-negative Sepsis due to pneumonia Probable acute complicated UTI COPD exacerbation - CXR today: No acute disease - CXR from [facility] on 06/01/2024 shows peripheral left lower lobe airspace opacity, concerning for pneumonia - IV azithromycin, IV cefepime - IV NS 1500 mL bolus, IV NS at 75 cc/hour - ipratropium and levalbuterol med nebs - IV methylprednisolone 62.5 mg once followed by IV methylprednisolone 40 mg daily - Mucomyst - PT evaluation requested Ruled out ACS - serial troponins 27, 27 - EKG does not show any ST elevations or T-wave changes, however, borderline short [place] interval noted Congestive heart failure, currently stable Coronary artery disease Hypertension - resumed home medication atorvastatin 80 mg - resume home medication losartan 25 mg - home medication carvedilol 3.125 as blood pressure on the softer side, we will continue to monitor Oral thrush - nystatin swish and swallow Chronic pain - [place] 5 q.6 hours as needed for qteltqow-sn-pjlnsx pain PUD prophylaxis: protonix 40mg DVT prophylaxis: Levonox 40mg Goals of care: Full code, discussed for >16 minutes on 06/15/2024 Plan discussed with patient Plan discussed with Dr. Ba Plan discussed with: Patient, Other (RN) My Orders My Orders Orders - WILBER CANELA Procedure Category Date Status Time Cardiac DIET 06/16/24 Transmitted Diet-2gna,Lofat,Lochol Lunch Pt Request For Service PT 06/16/24 Logged 12:46 Hydrocodone-Acet PHA 06/16/24 In Process 5/325mg Tab ([place] 13:00 Date of Service: Jun 16, 2024 Billing Provider: MILI BA MD Common Visit Codes: [id number] INP/OBS CARE(HIGH) WILBER CANELA Jun 16, 2024 17:26 MILI BA MD Jun 20, 2024 15:45
[2024-06-16] MEDS: MELATONIN 5 MG TAB PO SCH (21:41)
[2024-06-16] MEDS ORDERED: MELATONIN 5 MG TAB PO ONE (22:00)
[2024-06-17] VITALS (17 sets, daily range): BP systolic 116–153; BP diastolic 63–75; PULSE 74–97; RESP 15–19; TEMP 97.4–98.7; O2SAT 96–100
[2024-06-17] MEDS: TEMAZEPAM 15 MG CAP PO ONE (02:36)
[2024-06-17 05:56] LABS: Basophils # (auto) 0 10 ^3/uL (0-0.2); Basophils % (auto) 0.2 % (0.0-2.0); Eosinophils # (auto) 0.1 10 ^3/uL (0-0.8); Eosinophils % (auto) 0.6 % (0.0-7.0); Hematocrit 27.9 % (36.0-46.0); Hemoglobin 9.4 g/dL (12.2-16.2); Lymphocytes # (auto) 2.3 10 ^3/uL (0.4-5.4); Lymphocytes % (auto) 22.6 % (10.0-50.0); Mean Corpuscular Hemoglobin 29.9 pg (28.0-32.0); Mean Corpuscular Hgb Conc. 33.5 g/dL (32.0-36.0); Mean Corpuscular Volume 89.2 fL (80.0-100.0); Monocytes % (auto) 10.3 % (0.0-12.0); Neutrophils # (auto) 6.8 10 ^3/uL (1.6-8.6); Neutrophils % (auto) 66.3 % (37.0-80.0); Platelet Count (auto) 196 10^3/uL (140-450); Red Blood Cells 3.13 10^6/uL (4.0-5.20); Red Cell Distribution Width 16.3 % (11.8-14.3); White Blood Cell 10.2 10^3/uL (4.4-10.8)
[2024-06-17 06:11] LABS: Anion Gap 8 (5-15); Carbon Dioxide 25 mmol/L (20-31); Sodium 144 mmol/L (136-145)
[2024-06-17 06:12] LABS: Calcium 9.1 mg/dL (8.7-10.4)
[2024-06-17 06:17] LABS: Glucose 87 mg/dL (74-106)
[2024-06-17 06:30] LABS: BUN/Creatinine Ratio 9.6 (10.0-20.0); Blood Urea Nitrogen < 5 mg/dL (9-23); Chloride 111 mmol/L (98-107)
[2024-06-17] MEDS: POTASSIUM EFFERVESENT TAB 25 MEQ PO ONE (09:36)
[2024-06-17] MEDS ORDERED: MET50T PO (12:26)
[2024-06-17] MEDS ORDERED: FLUT1AER17 IN (13:32)
[2024-06-17] MEDS ORDERED: IPRATROPIUM BROM 0.5 MG/2.5ML INH SOL NEB SCH (14:00)
--- NOTE | 2024-06-17 15:38 | DVH ---
CHEST RADIOGRAPH Indication: dec b/l breath sounds Technique: Frontal and lateral view of the chest was obtained Comparison: None FINDINGS: Lines and Tubes: None Lungs: Lungs are hyperinflated suggestive of COPD. Pleura: No effusion. No pneumothorax. Cardiomediastinal contours: Unremarkable Bones: Unremarkable IMPRESSION: No evidence of acute disease.
--- NOTE | 2024-06-17 16:31 | DVHPNRES ---
Progress Note Date Seen: Jun 17, 2024 Resident Creating Document: WILBER CANELA RESIDENT Medical Necessity Reason Pt with a Central, PICC or Fol: No Subjective Review of Systems Patient is a 73-year-old female with past medical history of COPD, CHF, [place], h ypertension who came in due to shortness of breath and decreased SpO2. According to the patient, she was discharged from [facility] on 06/10/2024 after being treated for pneumonia and was sent to [facility] for physical therapy. Per patient, she has been having dyspnea and shortness of breath since then, patient is on home O2 2-4 L, at [facility] she was noted to have SpO2 of 82% on 4 L with SpO2 averaging at 86% on 5 L which is what prompted this visit to the hospital. Patient notes a left-sided chest pain that has been ongoing for the last few months, anterior chest tenderness to palpation is also noted. Patient states she is a little forgetful at baseline. Chest x-ray was unremarkable in the ER, chest x-ray performed at [facility] on 06/01/2024 showed peripheral left lower lobe airspace opacity, concerning for pneumonia. Past surgical history: Hysterectomy Home medications: Albuterol, atorvastatin, budesonide, carvedilol, furosemide, [place] 5, lansoprazole, latanoprost, losartan, pregabalin, sertraline, trazodone, Trelegy Past Hospitalization: 06/01/2024 for pneumonia and sepsis due to pneumonia Social & Personal history: Patient came from [facility] this time, prior to that was living at home with her . Quit smoking 8 years ago prior to that was smoking 1.5 pack per day for 50 years. Drinks 1-2 alcoholic drinks daily, remote history of heavy alcohol use and rehab attendance. Denies using any drugs. Allergies: Patient states allergy to sulfa drugs which causes nightmares. Patient states she is not allergic to penicillin and her is allergic to penicillin. Patient seen and examined at bedside. Patient is alert and oriented to time, place person and responding to all questions. Patient notes improvement in breathing and is expectorating some sputum. Poor air entry bilaterally today, increased methylprednisolone to b.i.d. Objective vital signs Vital Sign Date Time Temp Pulse Resp B/P (MAP) Pulse Ox O2 Delivery O2 Flow Rate FiO2 06/17/24 13:10 84 18 99 06/17/24 12:57 98.7 148/72 (97) 98.7 06/17/24 10:10 Nasal Cannula* 3 32 Total Intake and Output 06/16/24 06/16/24 06/17/24 15:00 23:00 07:00 Intake Total 900 ml 300 ml Balance 900 ml 300 ml medications Current Medications Medications Dose Ordered Sig/Alina Route Start Time Stop Time Status Last Admin Dose Admin Sodium Chloride 10 ml Q8HR IV 06/15/24 06:00 06/17/24 14:36 10 ML Enoxaparin Sodium 40 mg DAILY SC 06/15/24 10:00 Acetaminophen 650 mg Q6HP PRN PO 06/14/24 23:45 Azithromycin 250 ml @ 125 mls/hr DAILY IV 06/15/24 10:00 UNV Pantoprazole Sodium 40 mg DAILY IV 06/15/24 10:00 06/17/24 09:41 40 MG Azithromycin 250 ml @ 125 mls/hr Q24H IV 06/15/24 23:00 06/16/24 23:14 125 MLS/HR Sodium Chloride 1,000 ml @ 75 mls/hr [id number] IV 06/15/24 06:45 06/17/24 12:35 75 MLS/HR Nystatin 5 ml QID MT 06/15/24 12:00 06/17/24 12:34 5 ML Acetylcysteine 200 mg Q8HR NEB 06/15/24 14:00 06/17/24 12:59 200 MG Levalbuterol HCl 0.625 mg Q6HR NEB 06/15/24 14:00 06/17/24 13:00 0.625 MG Atorvastatin Calcium 80 mg HS PO 06/15/24 22:00 06/16/24 21:42 80 MG Losartan Potassium 25 mg DAILY PO 06/16/24 10:00 06/17/24 09:42 25 MG Ipratropium [place] 0.5 mg Q4HPRN PRN NEB 06/15/24 14:45 06/17/24 06:18 0.5 MG Acetaminophen/ Hydrocodone Bitart 1 tab Q6HPRN PRN PO 06/16/24 13:00 06/16/24 20:53 1 TAB Melatonin 5 mg HS PO 06/16/24 22:00 06/16/24 21:41 5 MG Methylprednisolone Sodium Succinate 40 mg BID IV 06/17/24 22:00 Linezolid 300 ml @ 150 mls/hr Q12HR IV 06/17/24 22:00 Examination General Appearance: Cooperative. Well developed. Well nourished. NAD Head Exam: Normal inspection. White patches on tongue noted Neck Exam: Normal inspection. Non-tender. Normal alignment Pulmonary/Respiratory: Chest tender. Decreased bilateral breath sounds, but improved from previous exam. no crackles, no wheezing. Cardiovascular/Chest: Regular rate and rhythm. No murmurs. No JVD. Peripheral Pulses: 2+ Radial (R). 2+ Radial (L). 2+ Pedal (R). 2+ Pedal (L) Abdominal Exam: Normal bowel sounds. Soft. normal abdomen, no visible veins, Nontender. No hepatospenomegaly. No masses Ankle Exam: Negative ankle edema Lower extremities: Negative lower extremity edema Neuro/Mental Status: A&O x4. Coherent. Thoughts/Psych: Normal thought pattern. Appropriate mood and affect. Good judgement and insight Skin Exam: Normal inspection. Normal color. Warm. Dry laboratory and microbiology Laboratory Tests 06/17/24 04:41 Test 06/17/24 04:41 Range/Units Serum Glucose 87 74-106 mg/dL Microbiology Date/Time Source Procedure Growth Status 06/15/24 11:00 Nose MRSA Screen - Final Complete 06/15/24 07:45 Sputum Gram Stain - Final Resulted 06/15/24 07:45 Sputum Respiratory Culture - Preliminary Resulted 06/15/24 02:37 Voided Urine Urine Culture - Final Enterococcus faecium - VRE Complete 06/15/24 01:00 Blood Blood Culture - Preliminary NO GROWTH AFTER 48 HOURS OF INCUBATION. Resulted Labs and/or images reviewed: Labs reviewed by me, Image(s) reviewed by me Problem List/Assessment/Plan Problem List/Assessment/Plan Community-acquired pneumonia: Gram-positive versus Gram-negative Sepsis due to pneumonia COPD exacerbation - CXR today: No acute disease - CXR from [facility] on 06/01/2024 shows peripheral left lower lobe airspace opacity, concerning for pneumonia - IV azithromycin - discontinued IV cefepime on 06/17/2024 - IV NS 1500 mL bolus, IV NS at 75 cc/hour - ipratropium and levalbuterol med nebs - IV methylprednisolone 62.5 mg once followed by IV methylprednisolone 40 mg daily; decreased to IV methylprednisolone 40 b.i.d. on 06/17/2024 - Mucomyst - pending PT evaluation - repeat chest x-ray 06/17/2024 shows no evidence of acute disease acute complicated UTI; VRE positive culture - IV linezolid b.i.d. Hypokalemia - repleted Ruled out ACS - serial troponins 27, 27 - EKG does not show any ST elevations or T-wave changes, however, borderline short [place] interval noted Congestive heart failure, currently stable Coronary artery disease Hypertension - resumed home medication atorvastatin 80 mg - resume home medication losartan 25 mg - home medication carvedilol 3.125 as blood pressure on the softer side, we will continue to monitor Oral thrush - nystatin swish and swallow Chronic pain - [place] 5 q.6 hours as needed for [id number] pain PUD prophylaxis: protonix 40mg DVT prophylaxis: Levonox 40mg Goals of care: Full code, discussed for >16 minutes on 06/15/2024 Plan discussed with patient and patient's daughter/caregiver at bedside Plan discussed with Dr. Beaver Plan discussed with: Patient, Daughter, Other (RN) My Orders My Orders Orders - WILBER CANELA Procedure Category Date Status Time Melatonin (Melatonin) PHA 06/16/24 In Process 22:00 Mechanical Soft Diet DIET 06/17/24 Transmitted Lunch Methylprednisolone PHA 06/17/24 In Process Sod Succ (Solu Medrol 22:00 Chest Two Views XY 06/17/24 Resulted Routine 12:45 Linezolid 600mg/300ml PHA 06/17/24 In Process (Zyvox) 22:00 Date of Service: Jun 17, 2024 Billing Provider: BAN BEAVER MD Common Visit Codes: [id number] INP/OBS CARE(HIGH) WILBER CANELA Jun 17, 2024 16:31 BAN BEAVER MD Jun 17, 2024 20:59
[2024-06-17] MEDS: LINEZOLID 600MG/300ML 300 ML IV SCH (22:29)
[2024-06-17] MEDS: methylPREDNISolone SOD SUCC 40 MG/ML VL IV SCH (22:29)
[2024-06-17] MEDS: traZODone HCL 50 MG TAB PO SCH (22:30)
[2024-06-18] VITALS (15 sets, daily range): BP systolic 129–164; BP diastolic 53–90; PULSE 94–114; RESP 14–20; TEMP 97.3–98.9; O2SAT 93–100
[2024-06-18 06:54] LABS: Basophils # (auto) 0.1 10 ^3/uL (0-0.2); Basophils % (auto) 1.1 % (0.0-2.0); Eosinophils # (auto) 0 10 ^3/uL (0-0.8); Hematocrit 31.8 % (36.0-46.0); Hemoglobin 10.3 g/dL (12.2-16.2); Lymphocytes # (auto) 0.4 10 ^3/uL (0.4-5.4); Lymphocytes % (auto) 3.2 % (10.0-50.0); Mean Corpuscular Hemoglobin 29.4 pg (28.0-32.0); Mean Corpuscular Hgb Conc. 32.2 g/dL (32.0-36.0); Mean Corpuscular Volume 91.4 fL (80.0-100.0); Monocytes # (auto) 0.3 10 ^3/uL (0-1.3); Monocytes % (auto) 2.3 % (0.0-12.0); Neutrophils # (auto) 12.6 10 ^3/uL (1.6-8.6); Neutrophils % (auto) 93.4 % (37.0-80.0); Nucleated Red Blood Cells % 0.1 %; Platelet Count (auto) 196 10^3/uL (140-450); Red Blood Cells 3.48 10^6/uL (4.0-5.20); Red Cell Distribution Width 16.8 % (11.8-14.3); White Blood Cell 13.5 10^3/uL (4.4-10.8)
[2024-06-18 07:13] LABS: Albumin 3.8 g/dL (3.2-4.8); Alkaline Phosphatase 58 U/L (46-116); Anion Gap 13 (5-15); BUN/Creatinine Ratio 9.4 (10.0-20.0); Bilirubin, Total 0.5 mg/dL (0.2-1.0); Calcium 9.7 mg/dL (8.7-10.4); Carbon Dioxide 23 mmol/L (20-31); Chloride 105 mmol/L (98-107); Potassium 3.7 mmol/L (3.5-5.1); Sodium 141 mmol/L (136-145)
[2024-06-18 07:19] LABS: Alanine Aminotransferase 62 U/L (7-40); Aspartate Aminotransferase 55 U/L (13-40); Blood Urea Nitrogen 5 mg/dL (9-23); Glucose 180 mg/dL (74-106); Total Protein 5.6 g/dL (5.7-8.2)
[2024-06-18] MEDS ORDERED: LINE1TAB6 PO (13:35)
[2024-06-18] MEDS ORDERED: AZIT-43 PO (13:35)
[2024-06-18] MEDS ORDERED: PRED20TA2 PO (13:35)
--- NOTE | 2024-06-18 14:23 | DVH ---
Procedure: CT CT ANGIO CHEST CONTRAST Reason for study/Clinical History: ro PE Comparison Study: None available at time of dictation. Exam Date: 06/18/2024 01:51 PM Radiation Dose Information: CT Dose: CTDI volume is 17.76 mGy. Dose-length product is 515.7 mGy*cm Contrast: Type of contrast: Omnipaque 350 Contrast inject: 100 mL Contrast wasted:0 TECHNIQUE: After the uneventful administration of intravenous contrast intravenously, CT imaging was performed through the chest. Coronal and sagittal reformations were performed by the technologist. Sagittal and coronal MIP images or submitted for interpretation. FINDINGS: Lower Neck: Visualized portions of the thyroid gland are unremarkable. Aorta and Vasculature: Normal caliber of thoracic aorta. Lymph Nodes: No enlarged intrathoracic lymph nodes. Mediastinum: Heart size is normal. There is no pericardial effusion. The esophagus is unremarkable. Lungs: No focal consolidation, pleural effusion or significant pneumothorax. No suspicious pulmonary nodule or mass. Musculoskeletal: No acute osseous abnormality. Upper abdomen: Limited portions of the upper abdomen are unremarkable. IMPRESSION: 1. No findings of pulmonary artery hypertension or pulmonary emboli. 2. All CT scans at this medical facility are performed using dose modulation techniques as appropriate to a performed exam including the following: Automated exposure control was utilized; adjustment of t he MA and/or KV according to patient size; and use of iterative reconstruction technique.
[2024-06-18] MEDS: ACETAMINOPHEN 325 MG TAB PO PRN (14:43)
--- NOTE | 2024-06-18 16:24 | DVHDSRES ---
Discharge Summary Date of Admission Resident Creating Document: RENNY HEATON RESIDENT Jun 14, 2024 at 23:36 Date of Discharge: Jun 18, 2024 Labs/Diagnostic Data: Laboratory Results Test 06/18/24 05:43 06/17/24 04:41 06/15/24 11:47 06/15/24 05:41 White Blood Count 13.5 10^3/uL (4.4-10.8) Red Blood Count 3.48 10^6/uL (4.0-5.20) Hemoglobin 10.3 g/dL (12.2-16.2) Hematocrit 31.8 % (36.0-46.0) Mean Corpuscular Volume 91.4 fL (80.0-100.0) Mean Corpuscular Hemoglobin 29.4 pg (28.0-32.0) Mean Corpuscular Hemoglobin Concent 32.2 g/dL (32.0-36.0) Red Cell Distribution Width 16.8 % (11.8-14.3) Platelet Count 196 10^3/uL (140-450) Mean Platelet Volume 9.4 fL (6.9-10.8) Neutrophils (%) (Auto) 93.4 % (37.0-80.0) Lymphocytes (%) (Auto) 3.2 % (10.0-50.0) Monocytes (%) (Auto) 2.3 % (0.0-12.0) Eosinophils (%) (Auto) 0.0 % (0.0-7.0) Basophils (%) (Auto) 1.1 % (0.0-2.0) Neutrophils # (Auto) 12.6 10 ^3/uL (1.6-8.6) Lymphocytes # (Auto) 0.4 10 ^3/uL (0.4-5.4) Monocytes # (Auto) 0.3 10 ^3/uL (0-1.3) Eosinophils # (Auto) 0 10 ^3/uL (0-0.8) Basophils # (Auto) 0.1 10 ^3/uL (0-0.2) Nucleated Red Blood Cells 0.1 % Sodium Level 141 mmol/L (136-145) Potassium Level 3.7 mmol/L (3.5-5.1) Chloride Level 105 mmol/L (98-107) Carbon Dioxide Level 23 mmol/L (20-31) Anion Gap 13 (5-15) Blood Urea Nitrogen 5 mg/dL (9-23) Creatinine 0.53 mg/dL (0.550-1.02) Glomerular Filtration Rate Calc 97 mL/min (>90) BUN/Creatinine Ratio 9.4 (10.0-20.0) Serum Glucose 180 mg/dL (74-106) Calcium Level 9.7 mg/dL (8.7-10.4) Total Bilirubin 0.5 mg/dL (0.2-1.0) Aspartate Amino Transferase (AST) 55 U/L (13-40) Alanine Aminotransferase (ALT) 62 U/L (7-40) Alkaline Phosphatase 58 U/L (46-116) Total Protein 5.6 g/dL (5.7-8.2) Albumin 3.8 g/dL (3.2-4.8) Blood Gas Specimen Type Venous Blood Gas Sample Site Other Blood Gas Patient Temperature 37.0 Arterial Blood Date Drawn [id number] Dwayne Test N/a Venous Blood pH 7.299 (7.320-7.430) Venous Blood pCO2 at Patient Temp 49.8 mmHg (38.0-54.0) Venous Blood pO2 at Patient Temp < 36.5 mmHg (23.0-48.0) Venous Blood HCO3 23.9 mmol/L (22.0-29.0) Venous Bld O2 Saturation (Measured) 27.3 % (60.0-85.0) Venous Blood Base Excess -2.8 mmol/L (-2.0-3.0) Venous Blood Total Hemoglobin 10.9 g/dL (12.0-16.0) Venous Blood Oxyhemoglobin 26.8 % (0.0-79.0) Venous Blood Carboxyhemoglobin 0.5 % (0.5-1.5) Venous Blood Methemoglobin 1.2 % (0.0-1.5) Blood Gas Liter Flow 2.00 Blood Gas Modality Nasal cannula FiO2 % 28.0 Blood Gas Critical Value Read Back Yes Blood Gas Notified Whom Blood Gas Notified Time [id number] Blood Gas Notified By robert Castrejon rt. Prothrombin Time 11.1 sec (9.3-11.8) Prothrombin Time INR 1.05 (0.9-1.15) Activated Partial Thromboplast Time 25.3 SEC (24.5-34.5) D-Dimer, Quantitative 0.65 mg/L FEU (0.0-0.49) Hemoglobin A1c 5.5 % A1C (<5.7) Lactic Acid Level 1.2 mmol/L (0.4-2.0) Magnesium Level 2.2 mg/dL (1.6-2.6) Direct Bilirubin 0.2 mg/dL (<0.3) Ammonia < 10 umol/L (11-32) Thyroid Stimulating Hormone (TSH) 0.39 uIU/mL (0.55-4.78) Test 06/15/24 02:37 06/14/24 20:07 06/14/24 19:54 06/14/24 19:00 Urine Color Light-yellow (Yellow) Urine Clarity Clear (Clear) Urine pH 6.5 (5.0-9.0) Urine Specific [place] 1.015 (1.001-1.035) Urine Protein Trace (Negative) Urine Ketones Negative (Negative) Urine Blood Negative /uL (Negative) Urine Nitrite Negative (Negative) Urine Bilirubin Negative (Negative) Urine Urobilinogen Normal mg/dL (Negative) Urine Leukocyte Esterase Negative /uL (Negative) Urine RBC <1 /hpf (0 - 4) Urine Microscopic WBC 2 /HPF (0-5) Urine Squamous Epithelial Cells Few /hpf (<5) Urine Bacteria Mod /hpf (None Seen) Urine Hyaline Casts Mod /lpf (0 - 2) Urine Glucose Normal mg/dL (Normal) Urine Opiates Screen Neg (NEGATIVE) Urine Fentanyl Screen Neg (NEGATIVE) Urine Barbiturates Screen Neg (NEGATIVE) Urine Phencyclidine Screen Neg (NEGATIVE) Urine Amphetamines Screen Neg (NEGATIVE) Urine Benzodiazepines Screen Neg (NEGATIVE) Urine Cocaine Screen Neg (NEGATIVE) Urine Cannabinoids Screen Neg (NEGATIVE) Influenza Type A Antigen Negative (Negative) Influenza Type B Antigen Negative (Negative) SARS-CoV-2 Antigen (Rapid) Negative (NEGATIVE) Troponin I High Sensitivity 27 ng/L (</=34) B-Type Natriuretic Peptide 62.35 pg/mL (0-100) Other Laboratory Tests 06/18/24 05:43 Brief Hx & Hospital Course: Juanito Heller is a 73-year-old female patient presents to the ED with chief complaint of progressive dyspnea from functional class II to functional class IV with decreased SpO2 (82% with nasal cannula 4 liters/minute) for the past five days before her admission. According to the patient, she was discharged from [facility] on 06/10/2024 after being treated for pneumonia and was sent to a SNF ([facility]) for physical therapy. Patient notes a left-sided chest pain that has been ongoing for the last few months, anterior chest tenderness to palpation is also noted. Denies fever, chills, palpitation, syncope, nausea, vomiting, diarrhea, dysuria, recent travel, sick contacts and motor or sensory deficits. Past medical history: Hypertension, COPD with requirement of home oxygen (2-4 liters/minute), CHF, LA, 05/2024 recent admission due to sepsis secondary to pneumonia Past surgical history: Hysterectomy Family history: Noncontributory Sociall history: Patient came from [facility] this time, prior to that was living at home with her . Ex-smoker, quit smoking 8 years ago (75 pack- year history of smoking). Drinks 1-2 alcoholic drinks daily, remote history of heavy alcohol use and rehab attendance. Denies other drug abuse. Allergies: Patient states allergy to sulfa drugs which causes nightmares. Patient states she is not allergic to penicillin and her is allergic to penicillin. Home medications: Albuterol, atorvastatin, budesonide, carvedilol, furosemide, [place] 5, lansoprazole, latanoprost, losartan, pregabalin, sertraline, trazodone, Trelegy Brief hospital course: Sepsis due to UTI to VRE versus probable pneumonia (sputum grew Dalia, probable contaminant from oral thrush) associated with acute on chronic hypoxic respiratory failure due to COPD exacerbation versus probable pneumonia, responding to IV fluids, IV antibiotics (cefepime, azithromycin and linezolid), IV steroids, bronchodilators and oxygen therapy. Completed Angio CT which ruled out pulmonary embolism. Ruled out acute coronary syndrome with serial troponins which were negative x2, EKG with no ST alteration, and noncardiac chest pain. Completed echocardiogram which showed LVEF of 65%, normal RV and left atrial enlargement. Discontinue beta-blockers at this time since patient had COPD exacerbation and has no clear indication of continue beta-blockers at this time (LVEF of 65%). Patient on admission required nystatin for treating oral thrush, counseled patient on correct inhalation technique due to potential adverse effects from budesonide. Patient hemodynamically stable, asymptomatic, with home oxygen flow requirement (2-4 liters/minute) in condition to be discharged to SNF to continue physical therapy sessions. Was granted under optimal medical therapy, gave advice on healthy lifestyle habits, and follow-up as outpatient with PCP, instructor of education, bookkeeping assistant and infectious disease specialist. DIAGNOSIS Sepsis due to UTI versus probable pneumonia Acute on chronic hypoxic respiratory failure Probable Community-acquired pneumonia: Gram-positive versus Gram-negative COPD exacerbation Acute complicated UTI; VRE positive culture Hypokalemia Ruled out ACS Musculoskeletal pain - noncardiac pain Chronic diastolic Congestive heart failure Coronary artery disease with history of [place] Hypertension Oral thrush Chronic pain Code status discussed with patient for over 18 minutes: Full code status Discussed plan with Dr. Beaver, patient and nurses. Physical Examination Patient lying in bed, in no acute distress General: Lucid, afebrile, mucosae are moist Cardiovascular: Normal S1 and S2. No murmurs, gallops or rubs Respiratory: Normal ventilation mechanics. Decreased lung sounds on auscultation. On nasal cannula at 2 liters/minute Abdomen: Soft, nontender, no organomegaly, normal bowel sounds MSK/skin: Mobilizes 4 limbs. Skin is dry and warm Neurological: Oriented in 3 spheres. No motor no sensitive deficits. Pupils are isocoric and reactive Operations or Procedures CHEST RADIOGRAPH Indication: sob Technique: Single frontal view of the chest was obtained COMPARISON: None FINDINGS: Lines and Tubes: None Lungs: Clear Pleura: No effusion. No pneumothorax. Cardiomediastinal contours: Unremarkable IMPRESSION: No acute disease. ATED BY: KENDRICK MATTHEW MD DICTATED DATE/TIME: 06/14/242026 CHEST RADIOGRAPH Indication: dec b/l breath sounds Technique: Frontal and lateral view of the chest was obtained Comparison: None FINDINGS: Lines and Tubes: None Lungs: Lungs are hyperinflated suggestive of COPD. Pleura: No effusion. No pneumothorax. Cardiomediastinal contours: Unremarkable Bones: Unremarkable IMPRESSION: No evidence of acute disease. ATED BY: DEUCE WEBER MD DICTATED DATE/TIME: 06/17/24 1533 Procedure: CT CT ANGIO CHEST CONTRAST Reason for study/Clinical History: ro PE Comparison Study: None available at time of dictation. Exam Date: 06/18/2024 01:51 PM Radiation Dose Information: CT Dose: CTDI volume is 17.76 mGy. Dose-length product is 515.7 mGy*cm Contrast: Type of contrast: Omnipaque 350 Contrast inject: 100 mL Contrast wasted:0 TECHNIQUE: After the uneventful administration of intravenous contrast intravenously, CT imaging was performed through the chest. Coronal and sagittal reformations were performed by the technologist. Sagittal and coronal MIP images or submitted for interpretation. FINDINGS: Lower Neck: Visualized portions of the thyroid gland are unremarkable. Aorta and Vasculature: Normal caliber of thoracic aorta. Lymph Nodes: No enlarged intrathoracic lymph nodes. Mediastinum: Heart size is normal. There is no pericardial effusion. The esophagus is unremarkable. Lungs: No focal consolidation, pleural effusion or significant pneumothorax. No suspicious pulmonary nodule or mass. Musculoskeletal: No acute osseous abnormality. Upper abdomen: Limited portions of the upper abdomen are unremarkable. IMPRESSION: 1. No findings of pulmonary artery hypertension or pulmonary emboli. 2. All CT scans at this medical facility are performed using dose modulation techniques as appropriate to a performed exam including the following: Automated exposure control was utilized; adjustment of the MA and/or KV according to patient size; and use of iterative reconstruction technique. ATED BY: MICHELLE MAHAJAN Jr., DO DICTATED DATE/TIME: 06/18/24 1420 EXAM: Two-dimensional and M-mode echocardiogram with Doppler and color Doppler. Blood Pressure: 146/60 mmHg INDICATION Chest Pain SOB RISK FACTORS Height: 5' 5", Weight: 138 DIMENSIONS LVDd 4.2 (3.8-5.7cm) LA (2D) 3.7 (1.9-4.0cm) Aortic Root 3.1 (2.0- 3.7cm) LVDs 3.2 (2.5-4.0cm) LA (MM) (1.9-4.0cm) Aortic Cusp Exc 1.4 (1.5- 2.0cm) EF (%) 50.0 (55-70%) Rt. Atrium 3.7 (1.9-4.0cm) Asc. Aorta cm IVSd 0.8 (0.7-1.1cm) RV (D) (1.8-2.4cm) PWd 0.8 (0.7-1.1cm) Mitral Valve Mitral Mitral Stenosis E wave 1.30m/s MV Mean GR. mmHg A wave 1.10m/s MV Peak GR. mmHg E/A ratio 1.2 2D MVA cm2 Aortic Valve Aortic Valve Aortic Stenosis V1 1.00m/s AO Mean GR. 4mmHg V2 1.60m/s AO Peak GR. 10mmHg LVOT Diameter 2.2 (1.8-2.4cm) Doppler BRIANNE 2.37cm2 Conclusion lvef 65 % byvisual estimate normal rv function left atrium enlarged no severe valve abnormalities noted SIGNED BY: TYRELL BRYANT MD SIGNED DATE/TIME: 06/15/24 1306 Condition at Discharge: Fair Final Diagnosis/Problems List Sepsis due to UTI versus probable pneumonia Acute on chronic hypoxic respiratory failure Probable Community-acquired pneumonia: Gram-positive versus Gram-negative COPD exacerbation Acute complicated UTI; VRE positive culture Hypokalemia Ruled out ACS Musculoskeletal pain - noncardiac pain Chronic diastolic Congestive heart failure Coronary artery disease with history of [place] Hypertension Oral thrush Chronic pain Discharge Disposition: Nursing Home Facility SNF Discharge Will this Physician continue t: No Discharge Instruct/Medications Diet: Cardiac 2g Na,low cholest Activity: No Restrictions, As Tolerated Follow Up/Referral: PCP Duty Officer Director Radio Medications: Azithromycin 250 mg PO daily Linezolid 600 mg p.o. b.i.d. for 5 days Prednisone 40 mg p.o. daily for 5 days Add diflucan for the dalia in sputum Rest per Per EMR Discharge Statement: "Patient was advised to return to the ER or call 911 if any headaches, dizziness, shortness of breath, chest pain, abdominal pain, bleeding, fevers, or worsening of medical condition. Patient was counseled about treatment plan, medications, possible side effects, patientverbalized understanding. All questions were answered to the best of my ability. This discharge took greater then 30 minutes in planning, reviewing documentation, counseling the patient, and discussing with other team members." ASSESSMENT ASSESSMENT Assessment Acute respiratory side failure secondary to COPD exacerbation associated to UTI to EVR Date of Service: Jun 18, 2024 Billing Provider: BAN BEAVER MD Common Visit Codes: 92399-LPR/OBS DISCH DAY >30min RENNY HEATON Jun 18, 2024 16:24 BAN BEAVER MD Jun 18, 2024 22:55
[2024-06-19] VITALS (21 sets, daily range): BP systolic 117–156; BP diastolic 59–89; PULSE 78–128; RESP 15–20; TEMP 97.6–98.6; O2SAT 85–100
[2024-06-19] MEDS: FLUCONAZOLE 200MG/100ML 100 ML IV SCH (01:06)
[2024-06-19] MEDS ORDERED: methylPREDNISolone SOD SUCC 40 MG/ML VL IV SCH (10:00)
[2024-06-19 11:03] LABS: Free T3 2.5 pg/mL (2.3-4.2)
[2024-06-19 11:04] LABS: Free T4 (Free Thyroxine) 1.65 ng/dL (0.89-1.76)
[2024-06-19] MEDS ORDERED: IPRATROPIUM BROM 0.5 MG/2.5ML INH SOL NEB SCH (12:00)
--- NOTE | 2024-06-19 14:04 | ECG ---
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
[2024-06-19 15:22] LABS: Base Excess -0.5 mmol/L (-2.0-3.0)
[2024-06-19] MEDS: methylPREDNISolone SOD SUCC 40 MG/ML VL IV ONE (15:49)
[2024-06-19] MEDS ORDERED: ACETYLCYSTEINE 20%(200MG/ML) SOL 4ML NEB SCH (18:00)
[2024-06-19] MEDS: LEVALBUTEROL HCL 1.25 MG/3 ML NEB NEB SCH (18:55)
[2024-06-19] MEDS: IPRATROPIUM BROM 0.5 MG/2.5ML INH SOL NEB SCH (18:56)
--- NOTE | 2024-06-19 19:22 | DVHPNRES ---
Progress Note Date Seen: Jun 19, 2024 Resident Creating Document: JHAJJDARIONVIRA RESIDENT Medical Necessity Reason Pt with a Central, PICC or Fol: No Subjective Review of Systems Patient is a 73-year-old female with past medical history of COPD, CHF, [place], hypertension who came in due to shortness of breath and decreased SpO2. According to the patient, she was discharged from [facility] on 06/10/2024 after being treated for pneumonia and was sent to [facility] for physical therapy. Per patient, she has been having dyspnea and shortness of breath since then, patient is on home O2 2-4 L, at [facility] she was noted to have SpO2 of 82% on 4 L with SpO2 averaging at 86% on 5 L which is what prompted this visit to the hospital. Patient notes a left-sided chest pain that has been ongoing for the last few months, anterior chest tenderness to palpation is also noted. Patient states she is a little forgetful at baseline. Chest x-ray was unremarkable in the ER, chest x-ray performed at [facility] on 06/01/2024 showed peripheral left lower lobe airspace opacity, concerning for pneumonia. Past surgical history: Hysterectomy Home medications: Albuterol, atorvastatin, budesonide, carvedilol, furosemide, [place] 5, lansoprazole, latanoprost, losartan, pregabalin, sertraline, trazodone, Trelegy Past Hospitalization: 06/01/2024 for pneumonia and sepsis due to pneumonia Social & Personal history: Patient came from [facility] this time, prior to that was living at home with her . Quit smoking 8 years ago prior to that was smoking 1.5 pack per day for 50 years. Drinks 1-2 alcoholic drinks daily, remote history of heavy alcohol use and rehab attendance. Denies using any drugs. Review of systems Patient seen and examined at the bedside. Patient had difficulty breathing and was sitting in his semi tripod position with increased work of breathing Patient denied chest pain, dizziness, palpitations, headache, nausea or vomiting Objective vital signs Vital Sign Date Time Temp Pulse Resp B/P (MAP) Pulse Ox O2 Delivery O2 Flow Rate FiO2 06/19/24 18:55 96 95 Nasal BiPAP Mask 45 06/19/24 17:00 97.9 17 134/67 (89) 97.9 06/19/24 12:08 2.0 Total Intake and Output 06/18/24 06/18/24 06/19/24 15:00 23:00 07:00 Intake Total 300 ml 405 ml 930 ml Balance 300 ml 405 ml 930 ml medications Current Medications Medications Dose Ordered Sig/Alina Route Start Time Stop Time Status Last Admin Dose Admin Sodium Chloride 10 ml Q8HR IV 06/15/24 06:00 06/19/24 14:08 10 ML Enoxaparin Sodium 40 mg DAILY SC 06/15/24 10:00 Acetaminophen 650 mg Q6HP PRN PO 06/14/24 23:45 06/18/24 14:43 650 MG Azithromycin 250 ml @ 125 mls/hr DAILY IV 06/15/24 10:00 UNV Nystatin 5 ml QID MT 06/15/24 12:00 06/19/24 13:11 5 ML Atorvastatin Calcium 80 mg HS PO 06/15/24 22:00 06/18/24 20:59 80 MG Losartan Potassium 25 mg DAILY PO 06/16/24 10:00 06/19/24 11:40 25 MG Acetaminophen/ Hydrocodone Bitart 1 tab Q6HPRN PRN PO 06/16/24 13:00 06/19/24 05:10 1 TAB Melatonin 5 mg HS PO 06/16/24 22:00 06/18/24 20:59 5 MG Linezolid 300 ml @ 150 mls/hr Q12HR IV 06/17/24 22:00 06/19/24 14:08 150 MLS/HR Trazodone HCl 150 mg HS PO 06/17/24 22:00 06/18/24 20:59 150 MG Fluconazole 100 ml @ 100 mls/hr DAILY IV 06/18/24 22:45 06/19/24 11:39 100 MLS/HR Pantoprazole Sodium 40 mg DAILY@0600 PO 06/20/24 06:00 Azithromycin 500 mg DAILY PO 06/19/24 23:00 Ipratropium [place] 0.5 mg Q4HR NEB 06/19/24 18:00 06/19/24 18:56 0.5 MG Levalbuterol HCl 0.625 mg Q4HR NEB 06/19/24 18:00 06/19/24 18:55 0.625 MG Methylprednisolone Sodium Succinate 40 mg Q8HR IV 06/19/24 22:00 Acetylcysteine 200 mg Q8HR NEB 06/19/24 22:00 Examination Constitutional: Patient was alert and oriented to time, place and person and was in [id number] respiratory distress Gen - no pallor, no icterus, no cyanosis, no clubbing, no LAD, no edema . Skin - Patients skin is warm and dry. HEENT - normocephalic, atraumatic, dry mucous membranes, white patches on the tongue noted Neck - full ROM, no LAD, no JVD Pulmonary - very minimal breath sounds heard bilaterally, extremely diminished sounds with end expiratory wheezing, no rhonchi, no stridor cardiovascular - normal S1,S2 heard. no murmurs heard. GI - soft abdomen without tenderness to palpation. no hepatospleenomegaly. Bowel sounds normoactive Neurological - Bilateral upper extremity strength 5/5, bilateral lower extremity strength 5/5, no facial droop, normal speech, no tremor, no sensory deficiets. laboratory and microbiology Laboratory Tests 06/18/24 05:43 Test 06/18/24 05:43 Range/Units Serum Glucose 180 H 74-106 mg/dL Microbiology Date/Time Source Procedure Growth Status 06/15/24 11:00 Nose MRSA Screen - Final Complete 06/15/24 07:45 Sputum Gram Stain - Final Complete 06/15/24 07:45 Respiratory Culture - Final Presumptive Aleida albicans Complete 06/15/24 02:37 Voided Urine Urine Culture - Final Enterococcus faecium - VRE Complete 06/15/24 01:00 Blood Blood Culture - Preliminary NO GROWTH AFTER 72 HOURS OF INCUBATION. Resulted Problem List/Assessment/Plan Problem List/Assessment/Plan Community-acquired pneumonia: Gram-positive versus Gram-negative Sepsis due to pneumonia COPD exacerbation - CXR from [facility] on 06/01/2024 shows peripheral left lower lobe airspace opacity, concerning for pneumonia - repeat chest x-ray 06/17/2024 shows no evidence of acute disease - CT angiography showed no evidence of pulmonary artery hypertension or pulmonary emboli ## On 06/19/2024- in the morning patient had increased work of breathing following which ABG was done which showed low PH with increased pCO2 following which the patient was put on BiPAP with the ABG done after hour and a half showing improvement. Patient and the family were explained about the need for mechanical ventilation if the patient's breathing deteriorates and she goes into a respiratory or cardiac arrest. Patient was explained that given her severe COPD she might have to be intubated for a long period of time and might have to go onto long-term care with a tracheostomy he for breathing does not improve while being on mechanical ventilation. Patient was also explained that there is sounds of improvement if she goes on mechanical ventilation. Patient confirmed understanding the risks and benefits of the procedure and after discussion with the family she decided that she does not want to get intubated or get a CPR in case she goes into cardiopulmonary arrest. Patient will be continued on BiPAP . - on BiPAP with IPAP 12 and EPAP 6, FiO2 45% - IV Solu-Medrol increased to 40 mg q.8 hours - levalbuterol and ipratropium nebulizer q.4 hours - Mucomyst q.8 hours - IV fluconazole for Aleida in sputum acute complicated UTI; VRE positive culture - IV linezolid b.i.d. Hypokalemia - repleted Ruled out ACS - serial troponins 27, 27 - EKG does not show any ST elevations or T-wave changes, however, borderline short [place] interval noted Congestive heart failure, currently stable Coronary artery disease Hypertension - atorvastatin 80 mg - losartan 25 mg Oral thrush - nystatin swish and swallow Chronic pain - [place] 5 q.6 hours as needed for lgddwirk-tb-iiligk pain PUD prophylaxis: protonix 40mg DVT prophylaxis: Levonox 40mg Goals of care: DNR, discussed for >55 minutes on 06/19/2024 with patient who her and daughter. Plan discussed with Dr. Ba Plan discussed with: Patient, Spouse, Daughter My Orders My Orders Orders - JOSE DE JESUS HARDIN RESIDENT Procedure Category Date Status Time Pantoprazole Tablet PHA 06/20/24 In Process (Protonix Tablet) 06:00 Azithromycin Tablet PHA 06/19/24 Logged (Zithromax Tablet) 23:00 Abg W/ Co-Ox RT 06/19/24 Logged 13:07 Transfer Orders XFER 06/19/24 Transmitted 13:08 BIPAP RT 06/19/24 Logged 14:02 Abg W/ Co-Ox RT 06/19/24 Logged 15:30 Ipratropium Medneb PHA 06/19/24 In Process (Atrovent Medneb) 18:00 Levalbuterol Hcl PHA 06/19/24 In Process (Xopenex Medneb) 18:00 Methylprednisolone PHA 06/19/24 In Process Sod Succ (Solu Medrol 22:00 Acetylcysteine PHA 06/19/24 In Process Inhalation 20% 22:00 Code Status CODE 06/19/24 Transmitted 18:17 Code Status CODE 06/19/24 Transmitted 18:18 Dietary Evaluation Review Comments: 1) Consider Cardiac Msoft diet 2) Consider Ensure 8fl.oz TID if PO intake <50% 3) Continue current plan of care Expected Outcomes/Goals: Pt will meet >75% estimated needs Fu 5-7 days Date of Service: Jun 19, 2024 Billing Provider: MILI BA MD Common Visit Codes: 18741-[id number] CARE 30-74 MIN JOSE DE JESUS HARDIN RESIDENT Jun 19, 2024 19:22 MILI BA MD Jun 20, 2024 15:47
[2024-06-19] MEDS: AZITHROMYCIN 250 MG TAB PO SCH (21:08)
[2024-06-19] MEDS: methylPREDNISolone SOD SUCC 40 MG/ML VL IV SCH (21:09)
[2024-06-19 21:41] LABS: Base Excess -6.3 mmol/L (-2.0-3.0)
[2024-06-19] MEDS: ACETYLCYSTEINE 20%(200MG/ML) SOL 4ML NEB SCH (22:20)
[2024-06-20] VITALS (19 sets, daily range): BP systolic 110–156; BP diastolic 54–91; PULSE 69–129; RESP 18–28; TEMP 97.2–98.7; O2SAT 92–100
[2024-06-20] MEDS: PANTOPRAZOLE 40 MG TAB PO SCH (06:08)
[2024-06-20 07:15] LABS: Base Excess -2.9 mmol/L (-2.0-3.0)
[2024-06-20] MEDS ORDERED: predniSONE 20 MG TAB PO SCH (10:00)
[2024-06-20 10:07] LABS: Basophils # (auto) 0 10 ^3/uL (0-0.2); Basophils % (auto) 0.1 % (0.0-2.0); Eosinophils # (auto) 0 10 ^3/uL (0-0.8); Hematocrit 28.5 % (36.0-46.0); Hemoglobin 9.6 g/dL (12.2-16.2); Lymphocytes # (auto) 0.4 10 ^3/uL (0.4-5.4); Lymphocytes % (auto) 5.7 % (10.0-50.0); Mean Corpuscular Hemoglobin 30.5 pg (28.0-32.0); Mean Corpuscular Hgb Conc. 33.6 g/dL (32.0-36.0); Mean Corpuscular Volume 90.9 fL (80.0-100.0); Monocytes # (auto) 0.4 10 ^3/uL (0-1.3); Monocytes % (auto) 4.8 % (0.0-12.0); Neutrophils # (auto) 6.6 10 ^3/uL (1.6-8.6); Neutrophils % (auto) 89.4 % (37.0-80.0); Platelet Count (auto) 170 10^3/uL (140-450); Red Blood Cells 3.14 10^6/uL (4.0-5.20); White Blood Cell 7.4 10^3/uL (4.4-10.8)
[2024-06-20 10:32] LABS: Chloride 105 mmol/L (98-107); Potassium 3.8 mmol/L (3.5-5.1); Sodium 140 mmol/L (136-145)
[2024-06-20 10:33] LABS: Anion Gap 8 (5-15); Carbon Dioxide 27 mmol/L (20-31)
[2024-06-20 10:34] LABS: Calcium 9.8 mg/dL (8.7-10.4)
[2024-06-20 10:38] LABS: BUN/Creatinine Ratio 9.2 (10.0-20.0)
[2024-06-20 10:40] LABS: Blood Urea Nitrogen 6 mg/dL (9-23); Glucose 153 mg/dL (74-106)
[2024-06-20] MEDS ORDERED: ONDANSETRON HCL 4 MG/2 ML VIAL IV PRN ×2 (13:15)
[2024-06-20] MEDS: ONDANSETRON HCL 4 MG/2 ML VIAL IM ONE (13:27)
[2024-06-20] MEDS: MAGNESIUM SULFATE 1GM/100ML 100 ML IV ONE (17:42)
[2024-06-20 18:28] LABS: Base Excess -2.7 mmol/L (-2.0-3.0)
--- NOTE | 2024-06-20 20:29 | DVHPNRES ---
Progress Note Date Seen: Jun 20, 2024 Resident Creating Document: JHAJShayJOSE DE JESUS RESIDENT Medical Necessity Reason Pt with a Central, PICC or Fol: No Subjective Review of Systems Patient seen and examined at the bedside. Patient was more alert and responding in full sentences with work of breathing reduced. Morning ABG showed improved PH and improved CO2 following which the BiPAP was discontinued and the patient was put on 3 L oxygen via nasal cannula Patient reported to be feeling better than yesterday Objective vital signs Vital Sign Date Time Temp Pulse Resp B/P (MAP) Pulse Ox O2 Delivery O2 Flow Rate FiO2 06/20/24 19:31 98 98 Facial BiPAP Mask 35 06/20/24 17:00 97.7 20 151/87 (108) 97.7 06/20/24 09:52 3 Total Intake and Output 06/19/24 06/19/24 06/20/24 15:00 23:00 07:00 Intake Total 100 ml 620 ml 175 ml Balance 100 ml 620 ml 175 ml medications Current Medications Medications Dose Ordered Sig/Alina Route Start Time Stop Time Status Last Admin Dose Admin Sodium Chloride 10 ml Q8HR IV 06/15/24 06:00 06/20/24 14:00 10 ML Enoxaparin Sodium 40 mg DAILY SC 06/15/24 10:00 Acetaminophen 650 mg Q6HP PRN PO 06/14/24 23:45 06/18/24 14:43 650 MG Azithromycin 250 ml @ 125 mls/hr DAILY IV 06/15/24 10:00 UNV Nystatin 5 ml QID MT 06/15/24 12:00 06/20/24 17:00 5 ML Atorvastatin Calcium 80 mg HS PO 06/15/24 22:00 06/19/24 21:07 80 MG Losartan Potassium 25 mg DAILY PO 06/16/24 10:00 06/20/24 10:05 25 MG Acetaminophen/ Hydrocodone Bitart 1 tab Q6HPRN PRN PO 06/16/24 13:00 06/20/24 13:54 1 TAB Melatonin 5 mg HS PO 06/16/24 22:00 06/19/24 21:08 5 MG Linezolid 300 ml @ 150 mls/hr Q12HR IV 06/17/24 22:00 06/20/24 00:19 150 MLS/HR Trazodone HCl 150 mg HS PO 06/17/24 22:00 06/19/24 21:07 150 MG Fluconazole 100 ml @ 100 mls/hr DAILY IV 06/18/24 22:45 06/20/24 10:02 100 MLS/HR Pantoprazole Sodium 40 mg DAILY@0600 PO 06/20/24 06:00 06/20/24 06:08 40 MG Azithromycin 500 mg DAILY PO 06/19/24 23:00 06/20/24 10:01 500 MG Ipratropium [place] 0.5 mg Q4HR NEB 06/19/24 18:00 06/20/24 19:31 0.5 MG Levalbuterol HCl 0.625 mg Q4HR NEB 06/19/24 18:00 06/20/24 19:31 0.625 MG Methylprednisolone Sodium Succinate 40 mg Q8HR IV 06/19/24 22:00 06/20/24 13:54 40 MG Acetylcysteine 200 mg Q8HR NEB 06/19/24 22:00 06/20/24 13:43 200 MG Ondansetron HCl 4 mg Q4HPRN PRN IV 06/20/24 13:15 Examination Constitutional: Patient was alert and oriented to time, place and person and was in moderate respiratory distress Gen - no pallor, no icterus, no cyanosis, no clubbing, no LAD, no edema . Skin - Patients skin is warm and dry. HEENT - normocephalic, atraumatic, dry mucous membranes, white patches on the tongue noted Neck - full ROM, no LAD, no JVD Pulmonary - very minimal breath sounds heard bilaterally, extremely diminished sounds with end expiratory wheezing, no rhonchi, no stridor cardiovascular - normal S1,S2 heard. no murmurs heard. GI - soft abdomen without tenderness to palpation. no hepatospleenomegaly. Bowel sounds normoactive Neurological - Bilateral upper extremity strength 4/5, bilateral lower extremity strength 4/5, no facial droop, normal speech, no tremor, no sensory deficiets laboratory and microbiology Laboratory Tests 06/20/24 09:37 Test 06/20/24 09:37 Range/Units Serum Glucose 153 H 74-106 mg/dL Microbiology Date/Time Source Procedure Growth Status 06/15/24 11:00 Nose MRSA Screen - Final Complete 06/15/24 07:45 Sputum Gram Stain - Final Complete 06/15/24 07:45 Respiratory Culture - Final Presumptive Aleida albicans Complete 06/15/24 02:37 Voided Urine Urine Culture - Final Enterococcus faecium - VRE Complete 06/15/24 01:00 Blood Blood Culture - Final NO GROWTH AFTER 5 DAYS OF INCUBATION. Complete Problem List/Assessment/Plan Problem List/Assessment/Plan Community-acquired pneumonia: Gram-positive versus Gram-negative Sepsis due to pneumonia COPD exacerbation - CXR from [facility] on 06/01/2024 shows peripheral left lower lobe airspace opacity, concerning for pneumonia - repeat chest x-ray 06/17/2024 shows no evidence of acute disease - CT angiography showed no evidence of pulmonary artery hypertension or pulmonary emboli ## On 06/19/2024- in the morning patient had increased work of breathing following which ABG was done which showed low PH with increased pCO2 following which the patient was put on BiPAP with the ABG done after hour and a half showing improvement. Patient and the family were explained about the need for mechanical ventilation if the patient's breathing deteriorates and she goes into a respiratory or cardiac arrest. Patient was explained that given her severe COPD she might have to be intubated for a long period of time and might have to go onto long-term care with a tracheostomy he for breathing does not improve while being on mechanical ventilation. Patient was also explained that there is sounds of improvement if she goes on mechanical ventilation. Patient confirmed understanding the risks and benefits of the procedure and after discussion with the family she decided that she does not want to get intubated or get a CPR in case she goes into cardiopulmonary arrest. Patient will be continued on BiPAP . ## 06/20/2024 - with a morning ABG showing improved pH and pCO2 38, BiPAP was discontinued and the patient was put on 3 L oxygen via nasal cannula. Patient remained on nasal cannula throughout the day with moderate work of breathing. In the evening around 6:00 p.m. ABG was repeated which showed pH worsened to 7.219 and pCO2 at 72 following which the patient was again put on BiPAP. - on BiPAP with IPAP 12 and EPAP 6, FiO2 45% - IV Solu-Medrol increased to 40 mg q.8 hours - levalbuterol and ipratropium nebulizer q.4 hours - Mucomyst q.8 hours - IV fluconazole for Aleida in sputum acute complicated UTI; VRE positive culture - IV linezolid b.i.d. Hypokalemia - repleted Ruled out ACS - serial troponins 27, 27 - EKG does not show any ST elevations or T-wave changes, however, borderline short [place] interval noted Congestive heart failure, currently stable Coronary artery disease Hypertension - atorvastatin 80 mg - losartan 25 mg Oral thrush - nystatin swish and swallow Chronic pain - [place] 5 q.6 hours as needed for [id number] pain PUD prophylaxis: protonix 40mg DVT prophylaxis: Levonox 40mg Goals of care: DNR, discussed for >25 minutes on 06/19/2024 with patient who her and daughter. Plan discussed with Dr. Ba Plan discussed with: Patient, Spouse, Daughter My Orders My Orders Orders - JOSE DE JESUS HARDIN Procedure Category Date Status Time Abg W/ Co-Ox RT 06/20/24 Logged 18:07 Abg W/ Co-Ox RT 06/21/24 Logged 06:00 Dietary Evaluation Review Comments: 1) Consider Cardiac Msoft diet 2) Consider Ensure 8fl.oz TID if PO intake <50% 3) Continue current plan of care Expected Outcomes/Goals: Pt will meet >75% estimated needs Fu 5-7 days Date of Service: Jun 20, 2024 Billing Provider: MILI BA MD Common Visit Codes: [id number] INP/OBS CARE(HIGH) JOSE DE JESUS HARDIN RESIDENT Jun 20, 2024 20:29 MILI BA MD Jun 26, 2024 15:22
[2024-06-21] VITALS (22 sets, daily range): BP systolic 13–185; BP diastolic 68–97; PULSE 80–114; RESP 17–24; TEMP 97.4–98.2; O2SAT 88–100
[2024-06-21 07:42] LABS: Basophils # (auto) 0 10 ^3/uL (0-0.2); Basophils % (auto) 0.1 % (0.0-2.0); Eosinophils # (auto) 0 10 ^3/uL (0-0.8); Eosinophils % (auto) 0.3 % (0.0-7.0); Hematocrit 30.1 % (36.0-46.0); Lymphocytes # (auto) 0.5 10 ^3/uL (0.4-5.4); Lymphocytes % (auto) 6.3 % (10.0-50.0); Mean Corpuscular Hemoglobin 30.1 pg (28.0-32.0); Mean Corpuscular Hgb Conc. 33.1 g/dL (32.0-36.0); Mean Corpuscular Volume 90.8 fL (80.0-100.0); Monocytes # (auto) 0.2 10 ^3/uL (0-1.3); Monocytes % (auto) 2.6 % (0.0-12.0); Neutrophils # (auto) 7.7 10 ^3/uL (1.6-8.6); Neutrophils % (auto) 90.7 % (37.0-80.0); Platelet Count (auto) 196 10^3/uL (140-450); Red Blood Cells 3.31 10^6/uL (4.0-5.20); Red Cell Distribution Width 16.7 % (11.8-14.3); White Blood Cell 8.5 10^3/uL (4.4-10.8)
[2024-06-21 07:49] LABS: Albumin 4.2 g/dL (3.2-4.8); Alkaline Phosphatase 72 U/L (46-116); Anion Gap 8 (5-15); BUN/Creatinine Ratio 9.5 (10.0-20.0); Calcium 10.1 mg/dL (8.7-10.4); Carbon Dioxide 27 mmol/L (20-31); Chloride 105 mmol/L (98-107); Potassium 4.1 mmol/L (3.5-5.1); Sodium 140 mmol/L (136-145); Total Protein 6.3 g/dL (5.7-8.2)
[2024-06-21 07:52] LABS: Alanine Aminotransferase 59 U/L (7-40); Aspartate Aminotransferase 44 U/L (13-40); Blood Urea Nitrogen 6 mg/dL (9-23); Glucose 153 mg/dL (74-106)
[2024-06-21 07:53] LABS: Bilirubin, Total 0.2 mg/dL (0.2-1.0)
[2024-06-21 09:11] LABS: Base Excess 0.5 mmol/L (-2.0-3.0)
[2024-06-21] MEDS: IOHEXOL 350 MG/ML 100ML IJ ONE (09:48)
--- NOTE | 2024-06-21 19:34 | DVHPNRES ---
Progress Note Date Seen: Jun 21, 2024 Resident Creating Document: JHMoeJJOSE DE JESUS Day RESIDENT Medical Necessity Reason Pt with a Central, PICC or Fol: No Subjective Review of Systems Patient and examined at the bedside In the morning patient was placed on BiPAP for about 2 hours following which she felt better and was breathing more comfortably. Over the day patient did not want to be on the BiPAP and had worsening work of breathing. In the evening patient was counseled and she agreed to be on the BiPAP for night. Objective vital signs Vital Sign Date Time Temp Pulse Resp B/P (MAP) Pulse Ox O2 Delivery O2 Flow Rate FiO2 06/21/24 18:04 98 22 100 06/21/24 17:58 Nasal Cannula* 3 32 06/21/24 13:00 97.8 143/89 (107) 97.8 Total Intake and Output 06/20/24 06/20/24 06/21/24 15:00 23:00 07:00 Intake Total 100 ml 150 ml 900 ml Output Total 0 ml Balance 100 ml 150 ml 900 ml medications Current Medications Medications Dose Ordered Sig/Alina Route Start Time Stop Time Status Last Admin Dose Admin Sodium Chloride 10 ml Q8HR IV 06/15/24 06:00 06/21/24 14:00 10 ML Enoxaparin Sodium 40 mg DAILY SC 06/15/24 10:00 Acetaminophen 650 mg Q6HP PRN PO 06/14/24 23:45 06/18/24 14:43 650 MG Azithromycin 250 ml @ 125 mls/hr DAILY IV 06/15/24 10:00 UNV Nystatin 5 ml QID MT 06/15/24 12:00 06/21/24 17:15 5 ML Atorvastatin Calcium 80 mg HS PO 06/15/24 22:00 06/20/24 22:44 80 MG Acetaminophen/ Hydrocodone Bitart 1 tab Q6HPRN PRN PO 06/16/24 13:00 06/21/24 18:00 1 TAB Melatonin 5 mg HS PO 06/16/24 22:00 06/20/24 22:45 5 MG Linezolid 300 ml @ 150 mls/hr Q12HR IV 06/17/24 22:00 06/21/24 10:00 150 MLS/HR Trazodone HCl 150 mg HS PO 06/17/24 22:00 06/20/24 22:45 150 MG Fluconazole 100 ml @ 100 mls/hr DAILY IV 06/18/24 22:45 06/21/24 09:39 100 MLS/HR Pantoprazole Sodium 40 mg DAILY@0600 PO 06/20/24 06:00 06/21/24 05:32 40 MG Ipratropium [place] 0.5 mg Q4HR NEB 06/19/24 18:00 06/21/24 17:58 0.5 MG Levalbuterol HCl 0.625 mg Q4HR NEB 06/19/24 18:00 06/21/24 17:58 0.625 MG Methylprednisolone Sodium Succinate 40 mg Q8HR IV 06/19/24 22:00 06/21/24 14:00 40 MG Acetylcysteine 200 mg Q8HR NEB 06/19/24 22:00 06/21/24 13:53 200 MG Ondansetron HCl 4 mg Q4HPRN PRN IV 06/20/24 13:15 Losartan Potassium 50 mg DAILY PO 06/22/24 10:00 Examination Constitutional: Patient was alert and oriented to time, place and person and was in moderate respiratory distress Gen - no pallor, no icterus, no cyanosis, no clubbing, no LAD, no edema . Skin - Patients skin is warm and dry. HEENT - normocephalic, atraumatic, dry mucous membranes, white patches on the tongue noted Neck - full ROM, no LAD, no JVD Pulmonary - very minimal breath sounds heard bilaterally, extremely diminished sounds with end expiratory wheezing, no rhonchi, no stridor cardiovascular - normal S1,S2 heard. no murmurs heard. GI - soft abdomen without tenderness to palpation. no hepatospleenomegaly. Bowel sounds normoactive Neurological - Bilateral upper extremity strength 4/5, bilateral lower extremity strength 4/5, no facial droop, normal speech, no tremor, no sensory deficiets laboratory and microbiology Laboratory Tests 06/21/24 06:59 Test 06/21/24 06:59 Range/Units Serum Glucose 153 H 74-106 mg/dL Microbiology Date/Time Source Procedure Growth Status 06/15/24 11:00 Nose MRSA Screen - Final Complete 06/15/24 07:45 Sputum Gram Stain - Final Complete 06/15/24 07:45 Respiratory Culture - Final Presumptive Aleida albicans Complete 06/15/24 02:37 Voided Urine Urine Culture - Final Enterococcus faecium - VRE Complete 06/15/24 01:00 Blood Blood Culture - Final NO GROWTH AFTER 5 DAYS OF INCUBATION. Complete Problem List/Assessment/Plan Problem List/Assessment/Plan Community-acquired pneumonia: Gram-positive versus Gram-negative Sepsis due to pneumonia COPD exacerbation - CXR from [facility] on 06/01/2024 shows peripheral left lower lobe airspace opacity, concerning for pneumonia - repeat chest x-ray 06/17/2024 shows no evidence of acute disease - CT angiography showed no evidence of pulmonary artery hypertension or pulmonary emboli ## On 06/19/2024- in the morning patient had increased work of breathing following which ABG was done which showed low PH with increased pCO2 following which the patient was put on BiPAP with the ABG done after hour and a half showing improvement. Patient and the family were explained about the need for mechanical ventilation if the patient's breathing deteriorates and she goes into a respiratory or cardiac arrest. Patient was explained that given her severe COPD she might have to be intubated for a long period of time and might have to go onto long-term care with a tracheostomy he for breathing does not improve while being on mechanical ventilation. Patient was also explained that there is sounds of improvement if she goes on mechanical ventilation. Patient confirmed understanding the risks and benefits of the procedure and after discussion with the family she decided that she does not want to get intubated or get a CPR in case she goes into cardiopulmonary arrest. Patient will be continued on BiPAP . ## 06/20/2024 - with a morning ABG showing improved pH and pCO2 38, BiPAP was discontinued and the patient was put on 3 L oxygen via nasal cannula. Patient remained on nasal cannula throughout the day with moderate work of breathing. In the evening around 6:00 p.m. ABG was repeated which showed pH worsened to 7.219 and pCO2 at 72 following which the patient was again put on BiPAP. - on BiPAP with IPAP 12 and EPAP 6, FiO2 45% - IV Solu-Medrol increased to 40 mg q.8 hours - levalbuterol and ipratropium nebulizer q.4 hours - Mucomyst q.8 hours - IV fluconazole for Aleida in sputum ## 06/21/2024 - patient continued to have increased work of breathing throughout the day and was counseled about importance of BiPAP at night for comfortable breathing. - patient and the family have agreed for hospice care. - for now patient will be continued on the same treatment until hospice is arranged acute complicated UTI; VRE positive culture - IV linezolid b.i.d. Hypokalemia - repleted Ruled out ACS - serial troponins 27, 27 - EKG does not show any ST elevations or T-wave changes, however, borderline short [place] interval noted Congestive heart failure, currently stable Coronary artery disease Hypertension - atorvastatin 80 mg - losartan 25 mg Oral thrush - nystatin swish and swallow Chronic pain - [place] 5 q.6 hours as needed for iohxkjaf-rw-hbzwdi pain PUD prophylaxis: protonix 40mg DVT prophylaxis: Levonox 40mg Goals of care: DNR, discussed for >25 minutes on 06/19/2024 with patient, her and daughter. Plan discussed with Dr. Ba Plan discussed with: Patient, Spouse, Daughter My Orders My Orders Orders - JOSE DE JESUS HARDIN RESIDENT Procedure Category Date Status Time Losartan Tablet PHA 06/22/24 In Process (Cozaar Tablet) 10:00 Dietary Evaluation Review Comments: 1) Consider Cardiac Msoft diet 2) Consider Ensure 8fl.oz TID if PO intake <50% 3) Continue current plan of care Expected Outcomes/Goals: Pt will meet >75% estimated needs Fu 5-7 days Date of Service: Jun 21, 2024 Billing Provider: MILI BA MD Common Visit Codes: [id number] INP/OBS CARE(HIGH) JOSE DE JESUS HARDIN RESIDENT Jun 21, 2024 19:33 MILI BA MD Jun 26, 2024 15:40
[2024-06-22] VITALS (23 sets, daily range): BP systolic 115–180; BP diastolic 60–97; PULSE 77–127; RESP 16–22; TEMP 97.5–98.4; O2SAT 88–100
[2024-06-22 07:58] LABS: Anion Gap 7 (5-15); Carbon Dioxide 29 mmol/L (20-31); Chloride 105 mmol/L (98-107); Potassium 3.7 mmol/L (3.5-5.1); Sodium 141 mmol/L (136-145)
[2024-06-22 07:59] LABS: Calcium 9.8 mg/dL (8.7-10.4)
[2024-06-22 08:02] LABS: Basophils # (auto) 0 10 ^3/uL (0-0.2); Basophils % (auto) 0.1 % (0.0-2.0); Eosinophils # (auto) 0 10 ^3/uL (0-0.8); Eosinophils % (auto) 0.2 % (0.0-7.0); Hematocrit 28.3 % (36.0-46.0); Hemoglobin 9.5 g/dL (12.2-16.2); Lymphocytes # (auto) 0.4 10 ^3/uL (0.4-5.4); Lymphocytes % (auto) 6.7 % (10.0-50.0); Mean Corpuscular Hgb Conc. 33.7 g/dL (32.0-36.0); Monocytes # (auto) 0.2 10 ^3/uL (0-1.3); Monocytes % (auto) 2.7 % (0.0-12.0); Neutrophils # (auto) 5.2 10 ^3/uL (1.6-8.6); Neutrophils % (auto) 90.3 % (37.0-80.0); Nucleated Red Blood Cells % 0.1 %; Platelet Count (auto) 175 10^3/uL (140-450); Red Blood Cells 3.17 10^6/uL (4.0-5.20); Red Cell Distribution Width 16.6 % (11.8-14.3); White Blood Cell 5.7 10^3/uL (4.4-10.8)
[2024-06-22 08:04] LABS: BUN/Creatinine Ratio 10.3 (10.0-20.0)
[2024-06-22 08:09] LABS: Blood Urea Nitrogen 6 mg/dL (9-23); Glucose 157 mg/dL (74-106)
[2024-06-22 09:57] LABS: Base Excess 1.7 mmol/L (-2.0-3.0)
[2024-06-22] MEDS: LOSARTAN POTASSIUM 25 MG TAB PO SCH (10:31)
--- NOTE | 2024-06-22 19:35 | DVHPNRES ---
Progress Note Date Seen: Jun 22, 2024 Resident Creating Document: JHAJJJOSE DE JESUS RESIDENT Medical Necessity Reason Pt with a Central, PICC or Fol: No Subjective Review of Systems Patient and examined at the bedside Patient was having mildly increased work of breathing, was able to speak in full sentences and sitting in a upright position Patient denied wearing the BiPAP. Objective vital signs Vital Sign Date Time Temp Pulse Resp B/P (MAP) Pulse Ox O2 Delivery O2 Flow Rate FiO2 06/22/24 18:27 100 Nasal Cannula 5.0 06/22/24 18:27 40 06/22/24 18:27 112 20 06/22/24 16:37 97.5 135/74 (94) 97.5 Total Intake and Output 06/21/24 06/21/24 06/22/24 15:00 23:00 07:00 Intake Total 400 ml 740 ml 450 ml Balance 400 ml 740 ml 450 ml medications Current Medications Medications Dose Ordered Sig/Alina Route Start Time Stop Time Status Last Admin Dose Admin Sodium Chloride 10 ml Q8HR IV 06/15/24 06:00 06/22/24 14:24 10 ML Enoxaparin Sodium 40 mg DAILY SC 06/15/24 10:00 Acetaminophen 650 mg Q6HP PRN PO 06/14/24 23:45 06/18/24 14:43 650 MG Azithromycin 250 ml @ 125 mls/hr DAILY IV 06/15/24 10:00 UNV Nystatin 5 ml QID MT 06/15/24 12:00 06/22/24 12:08 5 ML Atorvastatin Calcium 80 mg HS PO 06/15/24 22:00 06/21/24 21:39 80 MG Acetaminophen/ Hydrocodone Bitart 1 tab Q6HPRN PRN PO 06/16/24 13:00 06/22/24 14:26 1 TAB Melatonin 5 mg HS PO 06/16/24 22:00 06/21/24 21:39 5 MG Linezolid 300 ml @ 150 mls/hr Q12HR IV 06/17/24 22:00 06/22/24 10:29 150 MLS/HR Trazodone HCl 150 mg HS PO 06/17/24 22:00 06/21/24 21:38 150 MG Fluconazole 100 ml @ 100 mls/hr DAILY IV 06/18/24 22:45 06/22/24 10:28 100 MLS/HR Pantoprazole Sodium 40 mg DAILY@0600 PO 06/20/24 06:00 06/22/24 05:37 40 MG Ipratropium [place] 0.5 mg Q4HR NEB 06/19/24 18:00 06/22/24 18:27 0.5 MG Levalbuterol HCl 0.625 mg Q4HR NEB 06/19/24 18:00 06/22/24 18:27 0.625 MG Methylprednisolone Sodium Succinate 40 mg Q8HR IV 06/19/24 22:00 06/22/24 13:46 40 MG Acetylcysteine 200 mg Q8HR NEB 06/19/24 22:00 06/22/24 18:27 200 MG Ondansetron HCl 4 mg Q4HPRN PRN IV 06/20/24 13:15 Losartan Potassium 50 mg DAILY PO 06/22/24 10:00 06/22/24 10:31 50 MG Examination Constitutional: Patient was alert and oriented to time, place and person and was in moderate respiratory distress Gen - no pallor, no icterus, no cyanosis, no clubbing, no LAD, no edema . Skin - Patients skin is warm and dry. HEENT - normocephalic, atraumatic, dry mucous membranes, white patches on the tongue noted Neck - full ROM, no LAD, no JVD Pulmonary - very minimal breath sounds heard bilaterally, extremely diminished sounds with end expiratory wheezing, no rhonchi, no stridor cardiovascular - normal S1,S2 heard. no murmurs heard. GI - soft abdomen without tenderness to palpation. no hepatospleenomegaly. Bowel sounds normoactive Neurological - Bilateral upper extremity strength 4/5, bilateral lower extremity strength 4/5, no facial droop, normal speech, no tremor, no sensory deficiets laboratory and microbiology Laboratory Tests 06/22/24 07:14 Test 06/22/24 07:14 Range/Units Serum Glucose 157 H 74-106 mg/dL Microbiology Date/Time Source Procedure Growth Status 06/15/24 11:00 Nose MRSA Screen - Final Complete 06/15/24 07:45 Sputum Gram Stain - Final Complete 06/15/24 07:45 Respiratory Culture - Final Presumptive Aleida albicans Complete 06/15/24 02:37 Voided Urine Urine Culture - Final Enterococcus faecium - VRE Complete 06/15/24 01:00 Blood Blood Culture - Final NO GROWTH AFTER 5 DAYS OF INCUBATION. Complete Problem List/Assessment/Plan Problem List/Assessment/Plan Community-acquired pneumonia: Gram-positive versus Gram-negative Sepsis due to pneumonia COPD exacerbation - CXR from [facility] on 06/01/2024 shows peripheral left lower lobe airspace opacity, concerning for pneumonia - repeat chest x-ray 06/17/2024 shows no evidence of acute disease - CT angiography showed no evidence of pulmonary artery hypertension or pulmonary emboli ## On 06/19/2024- in the morning patient had increased work of breathing following which ABG was done which showed low PH with increased pCO2 following which the patient was put on BiPAP with the ABG done after hour and a half showing improvement. Patient and the family were explained about the need for mechanical ventilation if the patient's breathing deteriorates and she goes into a respiratory or cardiac arrest. Patient was explained that given her severe COPD she might have to be intubated for a long period of time and might have to go onto long-term care with a tracheostomy he for breathing does not improve while being on mechanical ventilation. Patient was also explained that there is sounds of improvement if she goes on mechanical ventilation. Patient confirmed understanding the risks and benefits of the procedure and after discussion with the family she decided that she does not want to get intubated or get a CPR in case she goes into cardiopulmonary arrest. Patient will be continued on BiPAP . ## 06/20/2024 - with a morning ABG showing improved pH and pCO2 38, BiPAP was discontinued and the patient was put on 3 L oxygen via nasal cannula. Patient remained on nasal cannula throughout the day with moderate work of breathing. In the evening around 6:00 p.m. ABG was repeated which showed pH worsened to 7.219 and pCO2 at 72 following which the patient was again put on BiPAP. - on BiPAP with IPAP 12 and EPAP 6, FiO2 45% - IV Solu-Medrol increased to 40 mg q.8 hours - levalbuterol and ipratropium nebulizer q.4 hours - Mucomyst q.8 hours - IV fluconazole for Aleida in sputum ## 06/21/2024 - patient continued to have increased work of breathing throughout the day and was counseled about importance of BiPAP at night for comfortable breathing. - patient and the family have agreed for hospice care. - for now patient will be continued on the same treatment until hospice is arranged ## 06/22/2024 - patient is on the same treatment. - hospice has been arranged - patient to be discharged tomorrow after switching to oral steroids acute complicated UTI; VRE positive culture - IV linezolid b.i.d. Hypokalemia - repleted Ruled out ACS - serial troponins 27, 27 - EKG does not show any ST elevations or T-wave changes, however, borderline short [place] interval noted Congestive heart failure, currently stable Coronary artery disease Hypertension - atorvastatin 80 mg - losartan 25 mg Oral thrush - nystatin swish and swallow Chronic pain - [place] 5 q.6 hours as needed for pkylkbbu-vw-xcpovg pain PUD prophylaxis: protonix 40mg DVT prophylaxis: Levonox 40mg Goals of care: DNR, discussed for >25 minutes on 06/19/2024 with patient who her and daughter. Plan discussed with Dr. Ba Plan discussed with: Patient, Spouse, Daughter My Orders My Orders Orders - JOSE DE JESUS HARDIN Procedure Category Date Status Time Abg W/ Co-Ox RT 06/22/24 Logged 06:00 * [employer] CONS 06/22/24 Transmitted Consult Dietary Evaluation Review Comments: 1) Consider Cardiac Msoft diet 2) Consider Ensure 8fl.oz TID if PO intake <50% 3) Continue current plan of care Expected Outcomes/Goals: Pt will meet >75% estimated needs Fu 5-7 days Date of Service: Jun 22, 2024 Billing Provider: MILI BA MD Common Visit Codes: [id number] INP/OBS CARE(HIGH) JOSE DE JESUS HARDIN RESIDENT Jun 22, 2024 19:35 MILI BA MD Jun 26, 2024 15:51
[2024-06-23] VITALS (13 sets, daily range): BP systolic 117–158; BP diastolic 68–84; PULSE 72–102; RESP 16–28; TEMP 97.5–98.5; O2SAT 92–100
[2024-06-23] MEDS ORDERED: DEX4T PO (13:49)
[2024-06-23] MEDS ORDERED: PANT40T PO (13:49)
[2024-06-23] MEDS ORDERED: [UNRECOGNIZED DRUG - CODE] NEB (13:49)
--- NOTE | 2024-06-23 17:40 | DVHDSRES ---
Discharge Summary Date of Admission Resident Creating Document: JOSE DE JESUS CORREA RESIDENT Jun 14, 2024 at 23:36 Date of Discharge: Jun 18, 2024 Admitting Diagnosis # acute on chronic hypoxic respiratory failure due to below # ? COPD exacerbation # rule out sepsis # rule out ACS # CHF likely not in exacerbation # uncontrolled HTN Wounds: none Labs/Diagnostic Data: Laboratory Results Test 06/22/24 09:50 06/22/24 07:14 06/21/24 09:02 06/21/24 06:59 Blood Gas Specimen Type Arterial Blood Gas Sample Site Right radial Blood Gas Patient Temperature 37.0 Arterial Blood Date Drawn [id number] Arterial Blood pH 7.364 (7.350-7.450) Arterial Blood Partial Pressure CO2 49.6 mmHg (32.0-45.0) Arterial Blood Partial Pressure O2 87.2 mmHg (83.0-108.0) Arterial Blood HCO3 27.6 mmol/L (21.0-28.0) Arterial Blood Oxygen Saturation 95.9 % (94.0-98.0) Arterial Blood Base Excess 1.7 mmol/L (-2.0-3.0) Arterial Blood Oxyhemoglobin 95.5 % (94.0-98.0) Arterial Blood Carboxyhemoglobin 0.2 % (0.5-1.5) Arterial Blood Methemoglobin 0.2 % (0.0-1.5) Dwayne Test Yes Blood Gas Total Hemoglobin 10.80 g/dL (12.0-16.0) Blood Gas Liter Flow 3.00 Blood Gas Modality Nasal cannula FiO2 % 32.0 Blood Gas Comments White Blood Count 5.7 10^3/uL (4.4-10.8) Red Blood Count 3.17 10^6/uL (4.0-5.20) Hemoglobin 9.5 g/dL (12.2-16.2) Hematocrit 28.3 % (36.0-46.0) Mean Corpuscular Volume 89.0 fL (80.0-100.0) Mean Corpuscular Hemoglobin 30.0 pg (28.0-32.0) Mean Corpuscular Hemoglobin Concent 33.7 g/dL (32.0-36.0) Red Cell Distribution Width 16.6 % (11.8-14.3) Platelet Count 175 10^3/uL (140-450) Mean Platelet Volume 9.0 fL (6.9-10.8) Neutrophils (%) (Auto) 90.3 % (37.0-80.0) Lymphocytes (%) (Auto) 6.7 % (10.0-50.0) Monocytes (%) (Auto) 2.7 % (0.0-12.0) Eosinophils (%) (Auto) 0.2 % (0.0-7.0) Basophils (%) (Auto) 0.1 % (0.0-2.0) Neutrophils # (Auto) 5.2 10 ^3/uL (1.6-8.6) Lymphocytes # (Auto) 0.4 10 ^3/uL (0.4-5.4) Monocytes # (Auto) 0.2 10 ^3/uL (0-1.3) Eosinophils # (Auto) 0 10 ^3/uL (0-0.8) Basophils # (Auto) 0 10 ^3/uL (0-0.2) Nucleated Red Blood Cells 0.1 % Sodium Level 141 mmol/L (136-145) Potassium Level 3.7 mmol/L (3.5-5.1) Chloride Level 105 mmol/L (98-107) Carbon Dioxide Level 29 mmol/L (20-31) Anion Gap 7 (5-15) Blood Urea Nitrogen 6 mg/dL (9-23) Creatinine 0.58 mg/dL (0.550-1.02) Glomerular Filtration Rate Calc 95 mL/min (>90) BUN/Creatinine Ratio 10.3 (10.0-20.0) Serum Glucose 157 mg/dL (74-106) Calcium Level 9.8 mg/dL (8.7-10.4) Blood Gas Set Respiration Rate 12.0 Blood Gas Pressure Support 8 Blood Gas EPAP 6 Blood Gas IPAP 14 Total Bilirubin 0.2 mg/dL (0.2-1.0) Aspartate Amino Transferase (AST) 44 U/L (13-40) Alanine Aminotransferase (ALT) 59 U/L (7-40) Alkaline Phosphatase 72 U/L (46-116) Total Protein 6.3 g/dL (5.7-8.2) Albumin 4.2 g/dL (3.2-4.8) Test 06/20/24 18:16 06/17/24 04:41 06/15/24 11:47 06/15/24 05:41 Blood Gas Spontaneous Rate 24 Blood Gas Critical Value Read Back Yes Blood Gas Notified Whom aminata Correa md Blood Gas Notified Time [id number] Blood Gas Notified By Free Thyroxine (T4) Calculated 1.65 ng/dL (0.89-1.76) Free Triiodothyronine (T3) pg/mL 2.50 pg/mL (2.3-4.2) Venous Blood pH 7.299 (7.320-7.430) Venous Blood pCO2 at Patient Temp 49.8 mmHg (38.0-54.0) Venous Blood pO2 at Patient Temp < 36.5 mmHg (23.0-48.0) Venous Blood HCO3 23.9 mmol/L (22.0-29.0) Venous Bld O2 Saturation (Measured) 27.3 % (60.0-85.0) Venous Blood Base Excess -2.8 mmol/L (-2.0-3.0) Venous Blood Total Hemoglobin 10.9 g/dL (12.0-16.0) Venous Blood Oxyhemoglobin 26.8 % (0.0-79.0) Venous Blood Carboxyhemoglobin 0.5 % (0.5-1.5) Venous Blood Methemoglobin 1.2 % (0.0-1.5) Prothrombin Time 11.1 sec (9.3-11.8) Prothrombin Time INR 1.05 (0.9-1.15) Activated Partial Thromboplast Time 25.3 SEC (24.5-34.5) D-Dimer, Quantitative 0.65 mg/L FEU (0.0-0.49) Hemoglobin A1c 5.5 % A1C (<5.7) Lactic Acid Level 1.2 mmol/L (0.4-2.0) Magnesium Level 2.2 mg/dL (1.6-2.6) Direct Bilirubin 0.2 mg/dL (<0.3) Ammonia < 10 umol/L (11-32) Thyroid Stimulating Hormone (TSH) 0.39 uIU/mL (0.55-4.78) Test 06/15/24 02:37 06/14/24 20:07 06/14/24 19:54 06/14/24 19:00 Urine Color Light-yellow (Yellow) Urine Clarity Clear (Clear) Urine pH 6.5 (5.0-9.0) Urine Specific [place] 1.015 (1.001-1.035) Urine Protein Trace (Negative) Urine Ketones Negative (Negative) Urine Blood Negative /uL (Negative) Urine Nitrite Negative (Negative) Urine Bilirubin Negative (Negative) Urine Urobilinogen Normal mg/dL (Negative) Urine Leukocyte Esterase Negative /uL (Negative) Urine RBC <1 /hpf (0 - 4) Urine Microscopic WBC 2 /HPF (0-5) Urine Squamous Epithelial Cells Few /hpf (<5) Urine Bacteria Mod /hpf (None Seen) Urine Hyaline Casts Mod /lpf (0 - 2) Urine Glucose Normal mg/dL (Normal) Urine Opiates Screen Neg (NEGATIVE) Urine Fentanyl Screen Neg (NEGATIVE) Urine Barbiturates Screen Neg (NEGATIVE) Urine Phencyclidine Screen Neg (NEGATIVE) Urine Amphetamines Screen Neg (NEGATIVE) Urine Benzodiazepines Screen Neg (NEGATIVE) Urine Cocaine Screen Neg (NEGATIVE) Urine Cannabinoids Screen Neg (NEGATIVE) Influenza Type A Antigen Negative (Negative) Influenza Type B Antigen Negative (Negative) SARS-CoV-2 Antigen (Rapid) Negative (NEGATIVE) Troponin I High Sensitivity 27 ng/L (</=34) B-Type Natriuretic Peptide 62.35 pg/mL (0-100) Other Laboratory Tests 06/22/24 07:14 Brief Hx & Hospital Course: HPI Patient is a 73-year-old female with past medical history of COPD, CHF, [place], hypertension who came in due to shortness of breath and decreased SpO2. According to the patient, she was discharged from [facility] on 06/10/2024 after being treated for pneumonia and was sent to [facility] for physical therapy. Per patient, she has been having dyspnea and shortness of breath since then, patient is on home O2 2-4 L, at [facility] she was noted to have SpO2 of 82% on 4 L with SpO2 averaging at 86% on 5 L which is what prompted this visit to the hospital. Patient notes a left-sided chest pain that has been ongoing for the last few months, anterior chest tenderness to palpation is also noted. Patient states she is a little forgetful at baseline. Chest x-ray was unremarkable in the ER, chest x-ray performed at [facility] on 06/01/2024 showed peripheral left lower lobe airspace opacity, concerning for pneumonia. Past surgical history: Hysterectomy Home medications: Albuterol, atorvastatin, budesonide, carvedilol, furosemide, [place] 5, lansoprazole, latanoprost, losartan, pregabalin, sertraline, trazodone, Trelegy Past Hospitalization: 06/01/2024 for pneumonia and sepsis due to pneumonia Social & Personal history: Patient came from [facility] this time, prior to that was living at home with her . Quit smoking 8 years ago prior to that was smoking 1.5 pack per day for 50 years. Drinks 1-2 alcoholic drinks daily, remote history of heavy alcohol use and rehab attendance. Denies using any drugs. Brief Hospital course Patient was admitted to the hospital with a chief complaint of worsening shortness of breath and decreased oxygen saturation. Patient was placed on IV antibiotics with suspicion of pneumonia and was started on treatment with bronchodilators, IV steroids. Pulmonary embolism ruled out by CT angiogram. Patient likely had an acute exacerbation of COPD likely end-stage. While in the hospital stay patient was titrated down on the steroid dose but she deteriorated and the steroid dose had to be increased again. Patient had to be put on BiPAP as she was retaining carbon dioxide and had increased work breathing. ## On 06/19/2024- in the morning patient had increased work of breathing following which ABG was done which showed low PH with increased pCO2 following which the patient was put on BiPAP with the ABG done after hour and a half showing improvement. Patient and the family were explained about the need for mechanical ventilation if the patient's breathing deteriorates and she goes into a respiratory or cardiac arrest. Patient was explained that given her severe COPD she might have to be intubated for a long period of time and might have to go onto long-term care with a tracheostomy he for breathing does not improve while being on mechanical ventilation. Patient was also explained that there is sounds of improvement if she goes on mechanical ventilation. Patient confirmed understanding the risks and benefits of the procedure and after discussion with the family she decided that she does not want to get intubated or get a CPR in case she goes into cardiopulmonary arrest. Patient was diagnosed with a acute urinary tract infection which was VRE positive and the patient was IV linezolid which is transition to oral linezolid at discharge. Patient was continued on BiPAP at night whenever she wanted but most of the time she refused the BiPAP.Patient and the family agreed for hospice care and it was set up. Patient was discharged to home hospice. Consults/Reason for consult none Operations or Procedures CTA chest FINDINGS: Lower Neck: Visualized portions of the thyroid gland are unremarkable. Aorta and Vasculature: Normal caliber of thoracic aorta. Lymph Nodes: No enlarged intrathoracic lymph nodes. Mediastinum: Heart size is normal. There is no pericardial effusion. The esophagus is unremarkable. Lungs: No focal consolidation, pleural effusion or significant pneumothorax. No suspicious pulmonary nodule or mass Musculoskeletal: No acute osseous abnormality. Upper abdomen: Limited portions of the upper abdomen are unremarkable. IMPRESSION: No findings of pulmonary artery hypertension or pulmonary emboli. Condition at Discharge: Guarded Final Diagnosis/Problems List Community-acquired pneumonia: Gram-positive versus Gram-negative Sepsis due to pneumonia COPD exacerbation End stage COPD Hypokalemia Ruled out ACS Congestive heart failure, currently stable Coronary artery disease Hypertension Oral thrush Chronic pain Discharge Disposition: Hospice - Home SNF Discharge Will this Physician continue t: No Discharge Instruct/Medications Diet: Cardiac 2g Na,low cholest Activity: No Restrictions, As Tolerated Follow Up/Referral: patient is d/c to hospice with home. Medications: as per EMR Discharge Statement: "Patient was advised to return to the ER or call 911 if any headaches, dizziness, shortness of breath, chest pain, abdominal pain, bleeding, fevers, or worsening of medical condition. Patient was counseled about treatment plan, medications, possible side effects, patientverbalized understanding. All questions were answered to the best of my ability. This discharge took greater then 30 minutes in planning, reviewing documentation, counseling the patient, and discussing with other team members." ASSESSMENT ASSESSMENT Assessment Community-acquired pneumonia: Gram-positive versus Gram-negative Sepsis due to pneumonia COPD exacerbation End stage COPD Hypokalemia Ruled out ACS Congestive heart failure, currently stable Coronary artery disease Hypertension Oral thrush Chronic pain Date of Service: Jun 23, 2024 Billing Provider: MILI BA MD Common Visit Codes: 36360-ZFS/OBS DISCH DAY >30min JOSE DE JESUS CORREA RESIDENT Jun 23, 2024 17:40 MILI BA MD Jun 26, 2024 16:02
== END 2024-06-23 16:12 | disposition hospice, home (50) | DRG 871 ==
LOC: EDBD 18:34 → ER 18:34 → OVERFLOW 23:36 → WEST WING 06-15 21:40 → TELE-WESTW 06-19 23:35
PROVIDERS: ADMIT Student in an Organized Health Care Education/Training Program; ATTEND Student in an Organized Health Care Education/Training Program
PROC: 5A09357 Assistance with Respiratory Ventilation, Less than 24 Consecutive Hours, Continuous Positive Airway Pressure (ICD-10-PCS; principal; 2024-06-19)
PROC: 5A09357 Assistance with Respiratory Ventilation, Less than 24 Consecutive Hours, Continuous Positive Airway Pressure (ICD-10-PCS; 2024-06-20)
PROC: 5A09357 Assistance with Respiratory Ventilation, Less than 24 Consecutive Hours, Continuous Positive Airway Pressure (ICD-10-PCS; 2024-06-21)
DX: A41.59 Other Gram-negative sepsis (principal); J15.69 Pneumonia due to other Gram-negative bacteria; J15.9 Unspecified bacterial pneumonia; J96.21 Acute and chronic respiratory failure with hypoxia; J44.1 Chronic obstructive pulmonary disease with (acute) exacerbation; N39.0 Urinary tract infection, site not specified; B37.0 Candidal stomatitis; J44.0 Chronic obstructive pulmonary disease with (acute) lower respiratory infection; Z51.5 Encounter for palliative care; Z20.822 Contact with and (suspected) exposure to COVID-19; I50.9 Heart failure, unspecified; I11.0 Hypertensive heart disease with heart failure; E78.5 Hyperlipidemia, unspecified; I25.10 Atherosclerotic heart disease of native coronary artery without angina pectoris; G89.29 Other chronic pain; E87.6 Hypokalemia; Z88.0 Allergy status to penicillin; Z88.1 Allergy status to other antibiotic agents; Z99.81 Dependence on supplemental oxygen; Z87.891 Personal history of nicotine dependence; Z90.710 Acquired absence of both cervix and uterus; Z79.891 Long term (current) use of opiate analgesic; Z79.899 Other long term (current) drug therapy
CPT/HCPCS: 36415; 36600; 71045; 71046; 71275; 80048; 80053; 80307; 81001; 82140; 82248; 82805; 83036; 83605; 83735; 83880; 84439; 84443; 84481; 84484; 85025; 85379; 85610; 85730; 87040; 87070; 87077; 87081; 87086; 87088; 87186; 87205; 87426; 87804; 93005; 93306; 94640; 94660; 96374; 97110; 97116; 97163; 97530; 99291; G0378; J1450; J2405; J2470